=== PATIENT | male | born 1995 | race Caucasian/White ===

== ENCOUNTER 2022-02-13 10:41 | Inpatient (IN) | payer OTHER, SELFPAY ==
[2022-02-13] VITALS (7 sets, daily range): BP systolic 107–127; BP diastolic 56–72; PULSE 63–104; RESP 16–21; TEMP 36.4–37.8; O2SAT 91–99; BMI 37.3; BMI 33.2
[2022-02-13] MEDS: ONDANSETRON 4 MG/2 ML INJ IV (10:56)
[2022-02-13 11:31] LABS: Creatine Kinase 105 U/L (55-170)
[2022-02-13 11:33] LABS: Alanine Aminotransferase 133 IU/L (<50); Albumin 5.2 g/dL (3.5-5.0); Albumin Globulin Ratio 1.2 (1.0-2.8); Alkaline Phosphatase 81 U/L (38-126); Aspartate Aminotransferase 85 IU/L (17-59); BUN Creatinine Ratio 18.1 (6-22); Bilirubin Total 2.4 mg/dL (0.2-1.3); Blood Urea Nitrogen 15 mg/dL (9-20); Calcium 9.3 mg/dL (8.4-10.2); Carbon Dioxide 19 mmol/L (22-32); Chloride 96 mmol/L (98-107); Estimated Glomerular Filt Rate > 60 mL/min (>60); Globulin 4.4 g/dL (1.7-4.1); Glucose 331 mg/dL (70-100); Potassium 5.2 mmol/L (3.4-5.1); Sodium 134 mmol/L (137-145); Total Protein 9.6 g/dL (6.3-8.2)
[2022-02-13 11:46] LABS: CKMB % Relative Index 0.6 % (1.5-5.0); Creatine Kinase MB 0.58 ng/mL (<2.37)
[2022-02-13 11:51] LABS: HEMOLYSIS 25 (0-50); Lipase 9839 U/L (23-300)
[2022-02-13 12:17] LABS: Add Manual Diff / Slide Review NO; Basophils Absolute Auto 100 /uL (0-100); Basophils Percent Auto 0.4 % (0-2); Eosinophils Absolute Auto 100 /uL (0-450); Eosinophils Percent Auto 1.1 % (2-4); Hematocrit 46.1 % (41-53); Hemoglobin 15.9 g/dL (13.5-17.5); Lymphocytes Absolute Auto 3500 /uL (1100-4500); Lymphocytes Percent Auto 28.1 % (25-40); Mean Corpuscular HGB Conc 34.5 % (30-36); Mean Corpuscular Hemoglobin 27.5 PG (26-34); Mean Corpuscular Volume 79.8 fL (80-100); Monocytes Absolute Auto 800 /uL (0-900); Monocytes Percent Auto 6.5 % (3-14); Neutrophils Absolute Auto 7900 /uL (1500-7000); Neutrophils Percent Auto 63.9 % (50-75); Platelet Count 316 X10^3/uL (150-400); Red Blood Cell Count 5.77 X10^6/uL (4.5-5.9); Red Cell Distribution Width 13.1 % (11.6-14.8); White Blood Cell Count 12.4 X10^3/uL (4.5-11.0)
[2022-02-13 12:17] LABS: COVID19 -Nasal RAPID Negative (Negative)
--- NOTE | 2022-02-13 12:28 | DI.MRI.S_ITS ---
PROCEDURE: MR ABDOMEN WO/W CON INDICATIONS: gallstone pancreatitis TECHNIQUE: Coronal HASTE, axial 2D FLASH in- and [id number]; axial breath-hold T2 FSE. Dynamic axial VIBE during the administration of contrast; post-contrast coronal VIBE or 2D FLASH with fat saturation from the hepatic dome to the iliac crests. Optional diffusion weighted imaging and ADC may be performed. COMPARISON: None. FINDINGS: Image quality: Excellent. Lung bases: No effusion. Lungs are not well seen on MRI. Solid organs: Hepatic steatosis. No suspicious hypervascular lesion. There are areas of fatty sparing around the gallbladder. Gallbladder is mildly distended, without stone. No biliary ductal dilation. No pancreatic ductal dilation, however there is moderate degree of peripancreatic fat stranding. This primarily involves the body and tail. No convincing altered enhancement. No drainable fluid collection. Borderline splenomegaly. No adrenal nodules. Small renal cysts. Nodes and vessels: Prominent lymph nodes are not enlarged by size criteria, nonspecific. No abdominal aortic aneurysm. Bowel and peritoneum: Nonobstructed. No pathologic ascites, aside from left upper quadrant edema. Bones and soft tissues: Fat containing periumbilical hernia. No focal enhancing suspicious osseous lesion. IMPRESSION: Acute interstitial pancreatitis primarily involving the body and tail. No significant parenchymal necrosis at this time. No drainable fluid collection. No pancreatic ductal dilation. No biliary ductal dilation. No cholelithiasis. Hepatic steatosis. Other findings as above. Dictated by: Doni Cordova M.D. on 02/13/2022 at 15:57 Approved by: Doni Cordova M.D. on 02/13/2022 at 16:03
[2022-02-13] MEDS: HYDROMORPHONE 0.5 MG INJ IV ×3 (12:48→17:25)
[2022-02-13] MEDS: LACTATED RINGERS 1,000 ML 1000 ML IV (12:48)
[2022-02-13 13:04] LABS: Lactate (Lactic Acid) 2.8 mmol/L (0.7-2.1)
[2022-02-13 13:07] LABS: C-Reactive Protein Quant 2.2 mg/dL (<1.0)
--- NOTE | 2022-02-13 13:12 | ED.ABDPAIN ---
HPI - Abdominal Pain <HERNAN Miramontes - Last Filed: 02/13/22 17:21> General Chief Complaint: Abdominal Pain Stated Complaint: Abd/Chest pain x 2 days- getting worse Time Seen by Provider: 02/13/22 12:28 Source: patient Mode of arrival: Ambulatory History of Present Illness HPI narrative: This is a 26-year-old male who presents to the emergency department complaining of abdominal pain which has gotten worse over the last 2 days, states that he has been vomiting since yesterday and he is having recurrent bouts of abdominal pain with vomiting. He denies having pain like this ever before, he denies chest pain, shortness of breath, he denies any recent trauma, he denies fever and chills. Patient states that he drinks alcohol occasionally, uses marijuana but denies any other substances. He states that his stools have been loose, his pain has been quite severe in his right upper quadrant and his vomiting has been persistent. He denies any blood in his emesis or his stool. He states he has not been able to tolerate any p.o. fluids, he denies any history of medical conditions. He states his stool has been loose. Related Data Allergies Allergy/AdvReac Type Severity Reaction Status Date / Time No Known Drug Allergies Allergy Verified 02/13/22 10:46 Review of Systems <HERNAN Miramontes - Last Filed: 02/13/22 17:21> Review of Systems Narrative: Review of systems is negative for acute abnormalities unless otherwise noted in HPI Patient History <HERNAN Miramontes - Last Filed: 02/13/22 17:21> Medical History (Updated 02/13/22 @ 19:00 by Son Maynard DO) No pertinent past medical history Surgical History (Updated 02/13/22 @ 19:00 by Son Maynard DO) No pertinent past surgical history Family History (Updated 02/13/22 @ 19:00 by Son Maynard DO) Brother Diabetes mellitus Father Diabetes mellitus Social History household members: significant other Smoking Status: Never smoker alcohol intake: current Smoking Status: Never smoker Substance Use Type: marijuana Exam <HERNAN Miramontes - Last Filed: 02/13/22 17:21> Narrative Exam Narrative: Reviewed vitals signs and nursing notes. General: cooperative, uncomfortable, in acute distress, vomiting, appears fatigued and well groomed HEENT: symmetrical facial expressions, moist mucous membranes, PERRLA, EOMI Cardiovascular: Sinus tachycardia, S1-S2 without murmur, no peripheral edema, warm extremities Respiratory: normal effort, able to speak in complete sentences, without wheezing, stridor, or abnormal breath sounds. No retractions or tachypnea. GI: abdomen soft, tender to palpation to the right upper quadrant and epigastrium, mildly distended, without masses, rebound tenderness or exquisite tenderness with exam. MSK: moves all extremities, neurovascularly intact, no weakness, normal tone Skin: brisk capillary refill, mild pallor or erythema Neuro: normal speech and cognition, A&O x3, ambulatory, clear speech Psych: mental status is grossly normal, congruent mood, normal affect, pleasant and cooperative Initial Vital Signs Initial Vital Signs: Vital Signs Temperature 97.5 F L 02/13/22 10:46 Pulse Rate 63 02/13/22 10:46 Respiratory Rate 18 02/13/22 10:46 Blood Pressure 127/61 02/13/22 10:46 Pulse Oximetry 98 02/13/22 10:46 Oxygen Delivery Method 02/13/22 10:46 <Krista Ng MD - Last Filed: 02/14/22 05:10> Initial Vital Signs Initial Vital Signs: Vital Signs Temperature 97.5 F L 02/13/22 10:46 Pulse Rate 63 02/13/22 10:46 Respiratory Rate 18 02/13/22 10:46 Blood Pressure 127/61 02/13/22 10:46 Pulse Oximetry 98 02/13/22 10:46 Oxygen Delivery Method 02/13/22 10:46 Course <HERNAN Miramontes - Last Filed: 02/13/22 17:21> Orders Ordered: Acetaminophen (Acetaminophen 325 Mg Tablet) 650 mg PO Q6H PRN PRN Reason: Fever/Mild Pain (1-3) Last Admin: 02/14/22 00:03 Dose: 650 mg Documented By: FAHEEM Atorvastatin Calcium (Atorvastatin 20 Mg Tablet) 80 mg PO BEDTIME HELLEN Last Admin: 02/13/22 20:20 Dose: 80 mg Documented By: FAHEEM Fenofibrate (Fenofibrate, Micronized 67 Mg Capsule) 201 mg PO DAILY@0800 [facility] Hydromorphone HCl (Hydromorphone 1 Mg Inj) 1 mg IV Q3H PRN PRN Reason: Pain, Moderate (4-6) Last Admin: 02/14/22 03:32 Dose: 1 mg Documented By: Admin: 02/13/22 20:58 Dose: 1 mg Documented By: FAHEEM Hydromorphone HCl (Hydromorphone 2 Mg Inj) 2 mg IV Q3H PRN PRN Reason: Pain, Severe (7-10) Last Admin: 02/13/22 23:42 Dose: 2 mg Documented By: FAHEEM Sodium Chloride (Normal Saline 0.9%) 1,000 mls @ 100 mls/hr IV CONT HELLEN Last Admin: 02/14/22 04:22 Dose: 100 mls/hr Documented By: Infusion: 02/14/22 04:22 Dose: 100 mls/hr Documented By: Admin: 02/13/22 19:16 Dose: 100 mls/hr Documented By: EUGENIA INSULIN DRIP PREMIX (Myxredlin Drip Premix) 100 unit in 100 mls @ 11.793 mls/hr IV TITRATE HELLEN; Protocol Last Titration: 02/13/22 20:36 Dose: 0.04 unit/kg/hr, 5 mls/hr Documented By: FAHEEM Co-signed By: WALTER Admin: 02/13/22 19:15 Dose: 0.1 unit/kg/hr, 11.793 mls/hr Documented By: EUGENIA Co-signed By: FAHEEM Ondansetron HCl (Ondansetron 4 Mg/2 Ml Inj) 4 mg IV Q4HR PRN PRN Reason: Nausea And Vomiting Last Admin: 02/14/22 03:32 Dose: 4 mg Documented By: FAHEEM Discontinued Medications Hydromorphone HCl (Hydromorphone 0.5 Mg Inj) 0.5 mg IV NOW ONE Stop: 02/13/22 12:33 Last Admin: 02/13/22 12:48 Dose: 0.5 mg Documented By: ASHIA Hydromorphone HCl (Hydromorphone 0.5 Mg Inj) 0.5 mg IV NOW ONE Stop: 02/13/22 14:06 Last Admin: 02/13/22 15:33 Dose: 0.5 mg Documented By: GONZALEZ Hydromorphone HCl (Hydromorphone 0.5 Mg Inj) 0.5 mg IV NOW ONE Stop: 02/13/22 17:21 Last Admin: 02/13/22 17:25 Dose: 0.5 mg Documented By: CHARLIE Lactated Ringer's (Lactated Ringers) 1,000 mls @ 1,000 mls/hr IV BOLUS ONE Stop: 02/13/22 13:27 Last Infusion: 02/13/22 16:19 Dose: 0 mls/hr Documented By: [facility] Admin: 02/13/22 12:48 Dose: 1,000 mls/hr Documented By: ASHIA Piperacillin Sod/Tazobactam (Sod 4.5 gm/ Sodium Chloride) 100 mls @ 200 mls/hr IV NOW ONE Stop: 02/13/22 14:20 Last Infusion: 02/13/22 16:19 Dose: 0 mls/hr Documented By: [facility] Admin: 02/13/22 15:29 Dose: 200 mls/hr Documented By: CHARLIE Sodium Chloride (Normal Saline 0.9%) 500 mls @ 1,000 mls/hr IV BOLUS ONE Stop: 02/13/22 14:49 Last Infusion: 02/13/22 16:20 Dose: 0 mls/hr Documented By: [facility] Admin: 02/13/22 15:30 Dose: 1,000 mls/hr Documented By: CHARLIE Ketorolac Tromethamine (Ketorolac 30 Mg/Ml Vial) 15 mg IV NOW ONE Stop: 02/13/22 12:54 Last Admin: 02/13/22 13:22 Dose: 15 mg Documented By: JUN Metoclopramide HCl (Metoclopramide 10 Mg/2 Ml Inj) 10 mg IV NOW ONE Stop: 02/13/22 16:17 Last Admin: 02/13/22 17:24 Dose: 10 mg Documented By: [facility] Ondansetron HCl (Ondansetron 4 Mg/2 Ml Inj) 4 mg IV NOW ONE Stop: 02/13/22 10:52 Last Admin: 02/13/22 10:56 Dose: 4 mg Documented By: [facility] Pantoprazole Sodium (Pantoprazole 40 Mg Vial) 20 mg IV NOW ONE Stop: 02/13/22 12:54 Last Admin: 02/13/22 13:22 Dose: 20 mg Documented By: JUN Reevaluation(s) Reevaluation #1: Patient states that he feels much better after the antiemetics and fluids has started Reevaluation #2: Patient receiving a 2 L of fluid, complains of pain, was given a 2nd dose of hydromorphone and another dose of Zofran Consultations Consultation #1: Consultation with Dr. Maynard for admission, he accepts patient for admission for pancreatitis Vital Signs Vital signs: Vital Signs - 8 hr 02/13/22 10:46 02/13/22 15:37 Temperature 97.5 F L Pulse Rate 63 104 H Respiratory Rate 18 20 Blood Pressure 127/61 124/67 Pulse Oximetry 98 98 Oxygen Delivery Method Room Air Room Air <Krista Ng MD - Last Filed: 02/14/22 05:10> Orders Ordered: Acetaminophen (Acetaminophen 325 Mg Tablet) 650 mg PO Q6H PRN PRN Reason: Fever/Mild Pain (1-3) Last Admin: 02/14/22 00:03 Dose: 650 mg Documented By: FAHEEM Atorvastatin Calcium (Atorvastatin 20 Mg Tablet) 80 mg PO BEDTIME [facility] Last Admin: 02/13/22 20:20 Dose: 80 mg Documented By: FAHEEM Fenofibrate (Fenofibrate, Micronized 67 Mg Capsule) 201 mg PO DAILY@0800 [facility] Hydromorphone HCl (Hydromorphone 1 Mg Inj) 1 mg IV Q3H PRN PRN Reason: Pain, Moderate (4-6) Last Admin: 02/14/22 03:32 Dose: 1 mg Documented By: Admin: 02/13/22 20:58 Dose: 1 mg Documented By: FAHEEM Hydromorphone HCl (Hydromorphone 2 Mg Inj) 2 mg IV Q3H PRN PRN Reason: Pain, Severe (7-10) Last Admin: 02/13/22 23:42 Dose: 2 mg Documented By: FAHEEM Sodium Chloride (Normal Saline 0.9%) 1,000 mls @ 100 mls/hr IV CONT HELLEN Last Admin: 02/14/22 04:22 Dose: 100 mls/hr Documented By: Infusion: 02/14/22 04:22 Dose: 100 mls/hr Documented By: Admin: 02/13/22 19:16 Dose: 100 mls/hr Documented By: EUGENIA INSULIN DRIP PREMIX (Myxredlin Drip Premix) 100 unit in 100 mls @ 11.793 mls/hr IV TITRATE HELLEN; Protocol Last Titration: 02/13/22 20:36 Dose: 0.04 unit/kg/hr, 5 mls/hr Documented By: FAHEEM Co-signed By: [facility] Admin: 02/13/22 19:15 Dose: 0.1 unit/kg/hr, 11.793 mls/hr Documented By: EUGENIA Co-signed By: FAHEEM Ondansetron HCl (Ondansetron 4 Mg/2 Ml Inj) 4 mg IV Q4HR PRN PRN Reason: Nausea And Vomiting Last Admin: 02/14/22 03:32 Dose: 4 mg Documented By: FAHEEM Discontinued Medications Hydromorphone HCl (Hydromorphone 0.5 Mg Inj) 0.5 mg IV NOW ONE Stop: 02/13/22 12:33 Last Admin: 02/13/22 12:48 Dose: 0.5 mg Documented By: ASHIA Hydromorphone HCl (Hydromorphone 0.5 Mg Inj) 0.5 mg IV NOW ONE Stop: 02/13/22 14:06 Last Admin: 02/13/22 15:33 Dose: 0.5 mg Documented By: CHARLIE Hydromorphone HCl (Hydromorphone 0.5 Mg Inj) 0.5 mg IV NOW ONE Stop: 02/13/22 17:21 Last Admin: 02/13/22 17:25 Dose: 0.5 mg Documented By: CHARLIE Lactated Ringer's (Lactated Ringers) 1,000 mls @ 1,000 mls/hr IV BOLUS ONE Stop: 02/13/22 13:27 Last Infusion: 02/13/22 16:19 Dose: 0 mls/hr Documented By: Admin: 02/13/22 12:48 Dose: 1,000 mls/hr Documented By: ASHIA Piperacillin Sod/Tazobactam (Sod 4.5 gm/ Sodium Chloride) 100 mls @ 200 mls/hr IV NOW ONE Stop: 02/13/22 14:20 Last Infusion: 02/13/22 16:19 Dose: 0 mls/hr Documented By: Admin: 02/13/22 15:29 Dose: 200 mls/hr Documented By: CHARLIE Sodium Chloride (Normal Saline 0.9%) 500 mls @ 1,000 mls/hr IV BOLUS ONE Stop: 02/13/22 14:49 Last Infusion: 02/13/22 16:20 Dose: 0 mls/hr Documented By: Admin: 02/13/22 15:30 Dose: 1,000 mls/hr Documented By: [facility] Ketorolac Tromethamine (Ketorolac 30 Mg/Ml Vial) 15 mg IV NOW ONE Stop: 02/13/22 12:54 Last Admin: 02/13/22 13:22 Dose: 15 mg Documented By: AMQue Metoclopramide HCl (Metoclopramide 10 Mg/2 Ml Inj) 10 mg IV NOW ONE Stop: 02/13/22 16:17 Last Admin: 02/13/22 17:24 Dose: 10 mg Documented By: GONZALEZ Ondansetron HCl (Ondansetron 4 Mg/2 Ml Inj) 4 mg IV NOW ONE Stop: 02/13/22 10:52 Last Admin: 02/13/22 10:56 Dose: 4 mg Documented By: MARKOS Pantoprazole Sodium (Pantoprazole 40 Mg Vial) 20 mg IV NOW ONE Stop: 02/13/22 12:54 Last Admin: 02/13/22 13:22 Dose: 20 mg Documented By: JUN Vital Signs Vital signs: Vital Signs - 8 hr 02/13/22 10:46 02/13/22 15:37 Temperature 97.5 F L Pulse Rate 63 104 H Respiratory Rate 18 20 Blood Pressure 127/61 124/67 Pulse Oximetry 98 98 Oxygen Delivery Method Room Air Room Air MDM - Abdominal Pain <HERNAN Miramontes - Last Filed: 02/13/22 17:21> Lab Data Result diagrams: 02/13/22 11:00 02/13/22 16:14 Labs: Lab Results 02/13/22 02/13/22 02/13/22 Range/Units 10:58 11:00 11:00 WBC 12.4 H (4.5-11.0) X10^3/uL RBC 5.77 (4.5-5.9) X10^6/uL Hgb 15.9 (13.5-17.5) g/dL Hct 46.1 (41-53) % MCV 79.8 L (80-100) fL MCH 27.5 (26-34) PG MCHC 34.5 (30-36) % RDW 13.1 (11.6-14.8) % Plt Count 316 (150-400) X10^3/uL Neut % (Auto) 63.9 (50-75) % Lymph % (Auto) 28.1 (25-40) % [place] % (Auto) 6.5 (3-14) % Eos % (Auto) 1.1 L (2-4) % Baso % (Auto) 0.4 (0-2) % Neut # (Auto) 7900 H (2720-1260) /uL Lymph # (Auto) 3500 (0355-3006) /uL [place] # (Auto) 800 (0-900) /uL Eos # (Auto) 100 (0-450) /uL Baso # (Auto) 100 (0-100) /uL Sodium 134 L (137-145) mmol/L Potassium 5.2 H (3.4-5.1) mmol/L Chloride 96 L (98-107) mmol/L Carbon Dioxide 19 L (22-32) mmol/L BUN 15 (9-20) mg/dL Creatinine 0.83 (0.66-1.25) mg/dL Estimated GFR > 60 (>60) mL/min BUN/Creatinine Ratio 18.1 (6-22) Glucose 331 H (70-100) mg/dL Lactate (0.7-2.1) mmol/L Calcium 9.3 (8.4-10.2) mg/dL Total Bilirubin 2.4 H (0.2-1.3) mg/dL AST 85 H (17-59) IU/L ALT 133 H (<50) IU/L Alkaline Phosphatase 81 (38-126) U/L Total Creatine Kinase (55-170) U/L CK-MB (CK-2) (<2.37) ng/mL CK-MB (CK-2) Rel Index (1.5-5.0) % Troponin I (0.01-0.034) ng/mL C-Reactive Protein (<1.0) mg/dL Total Protein 9.6 H (6.3-8.2) g/dL Albumin 5.2 H (3.5-5.0) g/dL Globulin 4.4 H (1.7-4.1) g/dL Albumin/Globulin Ratio 1.2 (1.0-2.8) Triglycerides (35-150) mg/dL Lipase 9839 H (23-300) U/L Procalcitonin (<0.5) ng/mL SARS-CoV-2 (PCR) Negative (Negative) 02/13/22 02/13/22 02/13/22 Range/Units 11:00 11:00 11:00 WBC (4.5-11.0) X10^3/uL RBC (4.5-5.9) X10^6/uL Hgb (13.5-17.5) g/dL Hct (41-53) % MCV (80-100) fL MCH (26-34) PG MCHC (30-36) % RDW (11.6-14.8) % Plt Count (150-400) X10^3/uL Neut % (Auto) (50-75) % Lymph % (Auto) (25-40) % [place] % (Auto) (3-14) % Eos % (Auto) (2-4) % Baso % (Auto) (0-2) % Neut # (Auto) (7128-4469) /uL Lymph # (Auto) (6305-3690) /uL [place] # (Auto) (0-900) /uL Eos # (Auto) (0-450) /uL Baso # (Auto) (0-100) /uL Sodium (137-145) mmol/L Potassium (3.4-5.1) mmol/L Chloride (98-107) mmol/L Carbon Dioxide (22-32) mmol/L BUN (9-20) mg/dL Creatinine (0.66-1.25) mg/dL Estimated GFR (>60) mL/min BUN/Creatinine Ratio (6-22) Glucose (70-100) mg/dL Lactate 2.8 H (0.7-2.1) mmol/L Calcium (8.4-10.2) mg/dL Total Bilirubin (0.2-1.3) mg/dL AST (17-59) IU/L ALT (<50) IU/L Alkaline Phosphatase (38-126) U/L Total Creatine Kinase 105 (55-170) U/L CK-MB (CK-2) 0.58 (<2.37) ng/mL CK-MB (CK-2) Rel Index 0.6 L (1.5-5.0) % Troponin I 0.020 (0.01-0.034) ng/mL C-Reactive Protein (<1.0) mg/dL Total Protein (6.3-8.2) g/dL Albumin (3.5-5.0) g/dL Globulin (1.7-4.1) g/dL Albumin/Globulin Ratio (1.0-2.8) Triglycerides (35-150) mg/dL Lipase (23-300) U/L Procalcitonin 0.16 (<0.5) ng/mL SARS-CoV-2 (PCR) (Negative) 02/13/22 02/13/22 02/13/22 Range/Units 11:00 16:14 16:14 WBC (4.5-11.0) X10^3/uL RBC (4.5-5.9) X10^6/uL Hgb (13.5-17.5) g/dL Hct (41-53) % MCV (80-100) fL MCH (26-34) PG MCHC (30-36) % RDW (11.6-14.8) % Plt Count (150-400) X10^3/uL Neut % (Auto) (50-75) % Lymph % (Auto) (25-40) % [place] % (Auto) (3-14) % Eos % (Auto) (2-4) % Baso % (Auto) (0-2) % Neut # (Auto) (1721-4082) /uL Lymph # (Auto) (1265-2129) /uL [place] # (Auto) (0-900) /uL Eos # (Auto) (0-450) /uL Baso # (Auto) (0-100) /uL Sodium 133 L (137-145) mmol/L Potassium 4.8 (3.4-5.1) mmol/L Chloride 96 L (98-107) mmol/L Carbon Dioxide 24 (22-32) mmol/L BUN 14 (9-20) mg/dL Creatinine 0.68 (0.66-1.25) mg/dL Estimated GFR > 60 (>60) mL/min BUN/Creatinine Ratio 20.6 (6-22) Glucose 331 H (70-100) mg/dL Lactate 1.9 (0.7-2.1) mmol/L Calcium 8.1 L (8.4-10.2) mg/dL Total Bilirubin (0.2-1.3) mg/dL AST (17-59) IU/L ALT (<50) IU/L Alkaline Phosphatase (38-126) U/L Total Creatine Kinase (55-170) U/L CK-MB (CK-2) (<2.37) ng/mL CK-MB (CK-2) Rel Index (1.5-5.0) % Troponin I (0.01-0.034) ng/mL C-Reactive Protein 2.2 H (<1.0) mg/dL Total Protein (6.3-8.2) g/dL Albumin (3.5-5.0) g/dL Globulin (1.7-4.1) g/dL Albumin/Globulin Ratio (1.0-2.8) Triglycerides 3186 H (35-150) mg/dL Lipase (23-300) U/L Procalcitonin (<0.5) ng/mL SARS-CoV-2 (PCR) (Negative) Imaging Data abdominal MRCP: Radiologist's Impression: PROCEDURE:? MR ABDOMEN WO/W CON ? INDICATIONS:? gallstone pancreatitis ? TECHNIQUE:? Coronal HASTE, axial 2D FLASH in- and [id number]; axial breath-hold T2 FSE.? Dynamic axial VIBE during the administration of contrast; post-contrast coronal VIBE or 2D FLASH with fat saturation from the hepatic dome to the iliac crests.? Optional diffusion weighted imaging and ADC may be performed.? ? COMPARISON:? None. ? FINDINGS:? Image quality:? Excellent.? ? Lung bases:? No effusion.? Lungs are not well seen on MRI. ? Solid organs:? Hepatic steatosis.? No suspicious hypervascular lesion.? There are areas of fatty sparing around the gallbladder. Gallbladder is mildly distended, without stone.? No biliary ductal dilation.? No pancreatic ductal dilation, however there is moderate degree of peripancreatic fat stranding.? This primarily involves the body and tail.? No convincing altered enhancement.? No drainable fluid collection.? Borderline splenomegaly. No adrenal nodules.? Small renal cysts. ? Nodes and vessels:? Prominent lymph nodes are not enlarged by size criteria, nonspecific. ?No abdominal aortic aneurysm. ? Bowel and peritoneum:? Nonobstructed.? No pathologic ascites, aside from left upper quadrant edema. ? Bones and soft tissues:? Fat containing periumbilical hernia.? No focal enhancing suspicious osseous lesion. ? ? ? IMPRESSION:? Acute interstitial pancreatitis primarily involving the body and tail.? No significant parenchymal necrosis at this time.? No drainable fluid collection.? No pancreatic ductal dilation.? No biliary ductal dilation.? No cholelithiasis. ? Hepatic steatosis. ? Other findings as above. ? Dictated by: Doni Cordova M.D. on 02/13/2022 at 15:57 ? ? Approved by: Doni Cordova M.D. on 02/13/2022 at 16:03 ? [facility] Narrative Medical decision making narrative: This is a 26-year-old male who presents to the emergency department for 2 days of nausea and vomiting without a break, loose stool, right upper quadrant pain with a low-grade fever. He states that he drinks alcohol only rarely, found to have acute interstitial pancreatitis primarily involving the body and tail via MRCP, no significant parenchymal necrosis at this time or drainable fluid collection, no pancreatic ductal dilatation and no biliary ductal dilatation, without cholelithiasis, hepatic steatosis was found. He was given 2 L of IV fluids, had a mild leukocytosis of 12.4 without anemia, sodium 134, potassium was 5 2 prior to recheck, recheck potassium is 4.8, recheck of glucose was again 331. Glucose was elevated at 331 and lactic acidosis at 2.8, this was rechecked after fluid administration and was 1.9. His total bilirubin was 2.4 initially, AST of 85, ALT of 133, no elevation to alkaline phosphatase, troponin of 0. 0 2, CRP is elevated at 2.2, total protein elevated at 9.6, albumin 5.2, triglycerides were significantly elevated at 31 86, lipase is 9839, procalcitonin of 0.16 and COVID PCR is negative. Patient was given Zosyn 4.5 mg, accepted by Dr. Maynard for admission to observation status for pancreatitis and intractable nausea vomiting. His pain was controlled with hydromorphone, Toradol and antiemetics emergency department. He is had 2 doses of 4mg Zofran and 10 mg of Reglan. <Krista Ng MD - Last Filed: 02/14/22 05:10> Lab Data Labs: Lab Results 02/13/22 02/13/22 02/13/22 Range/Units 10:58 11:00 11:00 WBC 12.4 H (4.5-11.0) X10^3/uL RBC 5.77 (4.5-5.9) X10^6/uL Hgb 15.9 (13.5-17.5) g/dL Hct 46.1 (41-53) % MCV 79.8 L (80-100) fL MCH 27.5 (26-34) PG MCHC 34.5 (30-36) % RDW 13.1 (11.6-14.8) % Plt Count 316 (150-400) X10^3/uL Neut % (Auto) 63.9 (50-75) % Lymph % (Auto) 28.1 (25-40) % [place] % (Auto) 6.5 (3-14) % Eos % (Auto) 1.1 L (2-4) % Baso % (Auto) 0.4 (0-2) % Neut # (Auto) 7900 H (4840-0184) /uL Lymph # (Auto) 3500 (3976-8813) /uL [place] # (Auto) 800 (0-900) /uL Eos # (Auto) 100 (0-450) /uL Baso # (Auto) 100 (0-100) /uL Sodium 134 L (137-145) mmol/L Potassium 5.2 H (3.4-5.1) mmol/L Chloride 96 L (98-107) mmol/L Carbon Dioxide 19 L (22-32) mmol/L BUN 15 (9-20) mg/dL Creatinine 0.83 (0.66-1.25) mg/dL Estimated GFR > 60 (>60) mL/min BUN/Creatinine Ratio 18.1 (6-22) Glucose 331 H (70-100) mg/dL Lactate (0.7-2.1) mmol/L Calcium 9.3 (8.4-10.2) mg/dL Total Bilirubin 2.4 H (0.2-1.3) mg/dL AST 85 H (17-59) IU/L ALT 133 H (<50) IU/L Alkaline Phosphatase 81 (38-126) U/L Total Creatine Kinase (55-170) U/L CK-MB (CK-2) (<2.37) ng/mL CK-MB (CK-2) Rel Index (1.5-5.0) % Troponin I (0.01-0.034) ng/mL C-Reactive Protein (<1.0) mg/dL Total Protein 9.6 H (6.3-8.2) g/dL Albumin 5.2 H (3.5-5.0) g/dL Globulin 4.4 H (1.7-4.1) g/dL Albumin/Globulin Ratio 1.2 (1.0-2.8) Triglycerides (35-150) mg/dL Lipase 9839 H (23-300) U/L Procalcitonin (<0.5) ng/mL SARS-CoV-2 (PCR) Negative (Negative) 02/13/22 02/13/22 02/13/22 Range/Units 11:00 11:00 11:00 WBC (4.5-11.0) X10^3/uL RBC (4.5-5.9) X10^6/uL Hgb (13.5-17.5) g/dL Hct (41-53) % MCV (80-100) fL MCH (26-34) PG MCHC (30-36) % RDW (11.6-14.8) % Plt Count (150-400) X10^3/uL Neut % (Auto) (50-75) % Lymph % (Auto) (25-40) % [place] % (Auto) (3-14) % Eos % (Auto) (2-4) % Baso % (Auto) (0-2) % Neut # (Auto) (1406-8522) /uL Lymph # (Auto) (5891-2927) /uL [place] # (Auto) (0-900) /uL Eos # (Auto) (0-450) /uL Baso # (Auto) (0-100) /uL Sodium (137-145) mmol/L Potassium (3.4-5.1) mmol/L Chloride (98-107) mmol/L Carbon Dioxide (22-32) mmol/L BUN (9-20) mg/dL Creatinine (0.66-1.25) mg/dL Estimated GFR (>60) mL/min BUN/Creatinine Ratio (6-22) Glucose (70-100) mg/dL Lactate 2.8 H (0.7-2.1) mmol/L Calcium (8.4-10.2) mg/dL Total Bilirubin (0.2-1.3) mg/dL AST (17-59) IU/L ALT (<50) IU/L Alkaline Phosphatase (38-126) U/L Total Creatine Kinase 105 (55-170) U/L CK-MB (CK-2) 0.58 (<2.37) ng/mL CK-MB (CK-2) Rel Index 0.6 L (1.5-5.0) % Troponin I 0.020 (0.01-0.034) ng/mL C-Reactive Protein (<1.0) mg/dL Total Protein (6.3-8.2) g/dL Albumin (3.5-5.0) g/dL Globulin (1.7-4.1) g/dL Albumin/Globulin Ratio (1.0-2.8) Triglycerides (35-150) mg/dL Lipase (23-300) U/L Procalcitonin 0.16 (<0.5) ng/mL SARS-CoV-2 (PCR) (Negative) 02/13/22 02/13/22 02/13/22 Range/Units 11:00 16:14 16:14 WBC (4.5-11.0) X10^3/uL RBC (4.5-5.9) X10^6/uL Hgb (13.5-17.5) g/dL Hct (41-53) % MCV (80-100) fL MCH (26-34) PG MCHC (30-36) % RDW (11.6-14.8) % Plt Count (150-400) X10^3/uL Neut % (Auto) (50-75) % Lymph % (Auto) (25-40) % [place] % (Auto) (3-14) % Eos % (Auto) (2-4) % Baso % (Auto) (0-2) % Neut # (Auto) (0551-6121) /uL Lymph # (Auto) (9369-0430) /uL [place] # (Auto) (0-900) /uL Eos # (Auto) (0-450) /uL Baso # (Auto) (0-100) /uL Sodium 133 L (137-145) mmol/L Potassium 4.8 (3.4-5.1) mmol/L Chloride 96 L (98-107) mmol/L Carbon Dioxide 24 (22-32) mmol/L BUN 14 (9-20) mg/dL Creatinine 0.68 (0.66-1.25) mg/dL Estimated GFR > 60 (>60) mL/min BUN/Creatinine Ratio 20.6 (6-22) Glucose 331 H (70-100) mg/dL Lactate 1.9 (0.7-2.1) mmol/L Calcium 8.1 L (8.4-10.2) mg/dL Total Bilirubin (0.2-1.3) mg/dL AST (17-59) IU/L ALT (<50) IU/L Alkaline Phosphatase (38-126) U/L Total Creatine Kinase (55-170) U/L CK-MB (CK-2) (<2.37) ng/mL CK-MB (CK-2) Rel Index (1.5-5.0) % Troponin I (0.01-0.034) ng/mL C-Reactive Protein 2.2 H (<1.0) mg/dL Total Protein (6.3-8.2) g/dL Albumin (3.5-5.0) g/dL Globulin (1.7-4.1) g/dL Albumin/Globulin Ratio (1.0-2.8) Triglycerides 3186 H (35-150) mg/dL Lipase (23-300) U/L Procalcitonin (<0.5) ng/mL SARS-CoV-2 (PCR) (Negative) Discharge Plan Departure Patient Disposition: Admitted As Inpatient Clinical Impression: High triglycerides, Elevated bilirubin, Acute dehydration, Elevated glucose Acute pancreatitis Qualifiers: Pancreatitis type: unspecified pancreatitis type Acute pancreatitis complication: no infection or necrosis Qualified Code(s): K85.90 - Acute pancreatitis without necrosis or infection, unspecified Admit Date/Time: 02/13/22 18:09 Admit Provider: Son Maynard <Krista Ng MD - Last Filed: 02/14/22 05:10> Cosign ED Attending Cosignature Attestation: I was immediately available in the department for consultation throughout this patient's visit. I agree with documentation as above. Krista Ng MD
[2022-02-13 13:21] LABS: Procalcitonin 0.16 ng/mL (<0.5)
[2022-02-13] MEDS: PANTOPRAZOLE 40 MG VIAL 20 MG IV (13:22)
[2022-02-13] MEDS: KETOROLAC 30 MG/ML VIAL 15 MG IV (13:22)
[2022-02-13 13:26] LABS: Triglycerides 3186 mg/dL (35-150)
[2022-02-13 14:51] LABS: Reflexed Lactate in 2 Hours Y
[2022-02-13] MEDS: PIPERACILLIN/TAZO 4.5 GM in SODIUM CHLORIDE 0.9% 100 ML IV (15:29)
[2022-02-13] MEDS: SODIUM CHLORIDE 0.9% 500 ML 1000 ML IV (15:30)
[2022-02-13] MEDS: ONDANSETRON 4 MG/2 ML INJ (15:37)
[2022-02-13 17:02] LABS: Lactate 2HR (Lactic Acid Rflx) 1.9 mmol/L (0.7-2.1)
[2022-02-13 17:05] LABS: BUN Creatinine Ratio 20.6 (6-22); Blood Urea Nitrogen 14 mg/dL (9-20); Calcium 8.1 mg/dL (8.4-10.2); Carbon Dioxide 24 mmol/L (22-32); Chloride 96 mmol/L (98-107); Estimated Glomerular Filt Rate > 60 mL/min (>60); Potassium 4.8 mmol/L (3.4-5.1); Sodium 133 mmol/L (137-145)
[2022-02-13 17:15] LABS: HEMOLYSIS 216 (0-50)
[2022-02-13 17:16] LABS: Glucose 331 mg/dL (70-100)
[2022-02-13] MEDS: METOCLOPRAMIDE 10 MG/2 ML INJ IV (17:24)
--- NOTE | 2022-02-13 18:36 | PM.CN.EICU ---
History of Present Illness Consult details IF CAMERA ACTIVATED, patient seen via real-time interactive audiovisual communication: Camera activated Date Patient Seen: 02/13/22 Chief complaint: Abd/Chest pain x 2 days- getting worse Reason for consult: Hypertriglyceridemia causing pancreatitis Consent obtained for tele-assistant auto center manager care: Yes Patient Location: ICU Provider location (State): [place] Other participants/roles: Dr. Maynard and RN Narrative: Patient with no significant past medical history who presents with abdominal pain for the past three days. Associated with N/V. Denies fever/chills, SOB, chest pain, or cough. No reported alcohol intake. On presentation he was found to have acute pancreatitis with lipase 9836 and TG 3186. Admitted to ICU for further management. MRI Abdomen: Acute interstitial pancreatitis primarily involving the body and tail.? No significant parenchymal necrosis at this time.? No drainable fluid collection.? No pancreatic ductal dilation.? No biliary ductal dilation.? No cholelithiasis. [facility] Medical History (Updated 02/13/22 @ 19:00 by Son Maynard DO) No pertinent past medical history Surgical History (Updated 02/13/22 @ 19:00 by Son Maynard DO) No pertinent past surgical history Family History (Updated 02/13/22 @ 19:00 by Son Maynard DO) Brother Diabetes mellitus Father Diabetes mellitus Social History Smoking Status: Never smoker Exam Vital Signs (past 8 hours): - 02/13/22 10:46 02/13/22 15:37 Temperature 97.5 F L Pulse Rate 63 104 H Respiratory Rate 18 20 Blood Pressure 127/61 124/67 Pulse Oximetry 98 98 Oxygen Delivery Method Room Air Room Air Oxygen Delivery Method Room Air Narrative Exam Narrative: NAD; speaking in full sentence. Objective Labs Result Diagrams: 02/13/22 11:00 02/13/22 16:14 Labs: Laboratory Results - last 24 hr 02/13/22 02/13/22 02/13/22 10:58 11:00 11:00 WBC 12.4 H RBC 5.77 Hgb 15.9 Hct 46.1 MCV 79.8 L MCH 27.5 MCHC 34.5 RDW 13.1 Plt Count 316 Neut % (Auto) 63.9 Lymph % (Auto) 28.1 [place] % (Auto) 6.5 Eos % (Auto) 1.1 L Baso % (Auto) 0.4 Neut # (Auto) 7900 H Lymph # (Auto) 3500 [place] # (Auto) 800 Eos # (Auto) 100 Baso # (Auto) 100 Sodium 134 L Potassium 5.2 H Chloride 96 L Carbon Dioxide 19 L BUN 15 Creatinine 0.83 Estimated GFR > 60 BUN/Creatinine Ratio 18.1 Glucose 331 H Lactate Calcium 9.3 Total Bilirubin 2.4 H AST 85 H ALT 133 H Alkaline Phosphatase 81 Total Creatine Kinase CK-MB (CK-2) CK-MB (CK-2) Rel Index Troponin I C-Reactive Protein Total Protein 9.6 H Albumin 5.2 H Globulin 4.4 H Albumin/Globulin Ratio 1.2 Triglycerides Lipase 9839 H Procalcitonin SARS-CoV-2 (PCR) Negative 02/13/22 02/13/22 02/13/22 11:00 11:00 11:00 WBC RBC Hgb Hct MCV MCH MCHC RDW Plt Count Neut % (Auto) Lymph % (Auto) [place] % (Auto) Eos % (Auto) Baso % (Auto) Neut # (Auto) Lymph # (Auto) [place] # (Auto) Eos # (Auto) Baso # (Auto) Sodium Potassium Chloride Carbon Dioxide BUN Creatinine Estimated GFR BUN/Creatinine Ratio Glucose Lactate 2.8 H Calcium Total Bilirubin AST ALT Alkaline Phosphatase Total Creatine Kinase 105 CK-MB (CK-2) 0.58 CK-MB (CK-2) Rel Index 0.6 L Troponin I 0.020 C-Reactive Protein Total Protein Albumin Globulin Albumin/Globulin Ratio Triglycerides Lipase Procalcitonin 0.16 SARS-CoV-2 (PCR) 02/13/22 02/13/22 02/13/22 11:00 16:14 16:14 WBC RBC Hgb Hct MCV MCH MCHC RDW Plt Count Neut % (Auto) Lymph % (Auto) [place] % (Auto) Eos % (Auto) Baso % (Auto) Neut # (Auto) Lymph # (Auto) [place] # (Auto) Eos # (Auto) Baso # (Auto) Sodium 133 L Potassium 4.8 Chloride 96 L Carbon Dioxide 24 BUN 14 Creatinine 0.68 Estimated GFR > 60 BUN/Creatinine Ratio 20.6 Glucose 331 H Lactate 1.9 Calcium 8.1 L Total Bilirubin AST ALT Alkaline Phosphatase Total Creatine Kinase CK-MB (CK-2) CK-MB (CK-2) Rel Index Troponin I C-Reactive Protein 2.2 H Total Protein Albumin Globulin Albumin/Globulin Ratio Triglycerides 3186 H Lipase Procalcitonin SARS-CoV-2 (PCR) Assessment & Plan Assessment & Plan narrative: # Acute pancreatitis -- Secondary to hypertriglyceridemia -- Start IVF -- NPO w/ ice chips -- Pain control w/ morphine 1 mg q3hr prn severe pain -- Triglyceridemia management as below # Hypertriglyceridemia -- Start insulin infusion to increase LPL activity -- Accucheck q1hr -- Goal BS 150-250 -- Daily TG level -- Start lipitor and fenofibrate # Hyperglycemia -- Start IVF -- Start insulin infusion -- Goal BS 150-250 -- Check HbA1c Discussed with RN and Dr. Maynard, Time Spent With Patient Critical Care time: I spent a total of [] minutes of critical care time on this patient's care today; this time is exclusive of procedural time.
--- NOTE | 2022-02-13 18:58 | P.HP_ITS ---
History of Present Illness History of Present Illness Date Patient Seen: 02/13/22 Time Patient Seen: 18:40 Chief complaint: Abd/Chest pain x 2 days- getting worse Narrative: This is a 26 year old male with no known PMH who presented to the emergency room with 2 days of worsening epigastric abdominal pain, nausea, and vomiting. Patient states he began developing epigastric / substernal pain which was sharp, not necessarily associate with food / meals 2 days ago that slowly worsened since then. He has no melena or hematochezia, but the first time he vomited he noticed a few specks of blood. No further blood has been noticed since then. He also says polyuria and polydipsia but no weight loss. He denies any recent fevers, chills, chest pain, palpitations, lower extremity edema, or rash. In the emergency room, patient was mildly tachycardic but the remainder of his vital signs were unremarkable. Laboratory evaluation revealed a mild leukocytosis with WBC 12.4, history is were notable for a glucose of 331, elevated bilirubin of 2.4, with mild transaminitis of AST of 85 and ALT of 133. Triglycerides were 3186, lipase was 9839. COVID-19 testing was negative. Abdominal MRI showed evidence of pancreatitis but no biliary dilatation. Patient was admitted to the ICU for further management of hypertriglyceridemia induced pancreatitis Patient History Medical History (Updated 02/13/22 @ 19:00 by Son Maynard DO) No pertinent past medical history Surgical History (Updated 02/13/22 @ 19:00 by Son Maynard DO) No pertinent past surgical history Family & Social History Family History (Updated 02/13/22 @ 19:00 by Son Maynard DO) Brother Diabetes mellitus Father Diabetes mellitus Social History: household members significant other Prior Living Arrangements Apartment/Condo Safety & Behavioral: Feels Safe in Current Yes Environment Been Physically Hurt or No Threatened By a Person Tobacco & Substance use: Smoking Status Never smoker alcohol intake current alcohol intake frequency a few times a week Substance Use Type marijuana Meds Home Medications and Allergies Allergies Allergy/AdvReac Type Severity Reaction Status Date / Time No Known Drug Allergies Allergy Verified 02/13/22 10:46 Review of Systems Review of Systems Narrative: All other systems reviewed with the patient and are negative unless otherwise stated. Exam Vital Signs (past 8 hours): - 02/13/22 15:37 Pulse Rate 104 H Respiratory Rate 20 Blood Pressure 124/67 Pulse Oximetry 98 Oxygen Delivery Method Room Air Oxygen Delivery Method Room Air Narrative Exam Narrative: General:? Patient is well developed and well nourished, in no distress at this time. HEENT:? Normocephalic, atraumatic, extraocular muscles intact, oral pharynx is clear and mucous membranes are moist. Neck: supple and symmetric, trachea is midline, no cervical adenopathy. Negative for JVD Chest:? Normal AP diameter and contour without kyphoscoliosis, no tachypnea, equal chest rise bilaterally. Lungs:? CTA b/l no wheezing rhonchi or rales. Cardio:?RRR no m/r/g. Abdomen: S minimal tenderness epigastrium / LUQ. No CVA tenderness. Musculoskeletal:? Muscle strength and tone are equal within normal limits, no deformity. Extremities: No edema or joint effusions. No cyanosis or clubbing. Skin:? Pale,? Warm to touch,dry and intact without rashes, ulcerations or petechiae.? Neuro:? Alert and orientated x3,? sensation to touch intact in all extremities, no gross deficits noted of cranial nerves. Psych:? Patient has a well-kept appearance, appropriate affect, mental status attitude thought context and judgment are appropriate for age. Objective Labs Result Diagrams: 02/13/22 11:00 02/13/22 16:14 Labs: Laboratory Results - last 24 hr 02/13/22 02/13/22 02/13/22 10:58 11:00 11:00 WBC 12.4 H RBC 5.77 Hgb 15.9 Hct 46.1 MCV 79.8 L MCH 27.5 MCHC 34.5 RDW 13.1 Plt Count 316 Neut % (Auto) 63.9 Lymph % (Auto) 28.1 [place] % (Auto) 6.5 Eos % (Auto) 1.1 L Baso % (Auto) 0.4 Neut # (Auto) 7900 H Lymph # (Auto) 3500 [place] # (Auto) 800 Eos # (Auto) 100 Baso # (Auto) 100 Sodium 134 L Potassium 5.2 H Chloride 96 L Carbon Dioxide 19 L BUN 15 Creatinine 0.83 Estimated GFR > 60 BUN/Creatinine Ratio 18.1 Glucose 331 H Lactate Calcium 9.3 Total Bilirubin 2.4 H AST 85 H ALT 133 H Alkaline Phosphatase 81 Total Creatine Kinase CK-MB (CK-2) CK-MB (CK-2) Rel Index Troponin I C-Reactive Protein Total Protein 9.6 H Albumin 5.2 H Globulin 4.4 H Albumin/Globulin Ratio 1.2 Triglycerides Lipase 9839 H Procalcitonin SARS-CoV-2 (PCR) Negative 02/13/22 02/13/22 02/13/22 11:00 11:00 11:00 WBC RBC Hgb Hct MCV MCH MCHC RDW Plt Count Neut % (Auto) Lymph % (Auto) [place] % (Auto) Eos % (Auto) Baso % (Auto) Neut # (Auto) Lymph # (Auto) [place] # (Auto) Eos # (Auto) Baso # (Auto) Sodium Potassium Chloride Carbon Dioxide BUN Creatinine Estimated GFR BUN/Creatinine Ratio Glucose Lactate 2.8 H Calcium Total Bilirubin AST ALT Alkaline Phosphatase Total Creatine Kinase 105 CK-MB (CK-2) 0.58 CK-MB (CK-2) Rel Index 0.6 L Troponin I 0.020 C-Reactive Protein Total Protein Albumin Globulin Albumin/Globulin Ratio Triglycerides Lipase Procalcitonin 0.16 SARS-CoV-2 (PCR) 02/13/22 02/13/22 02/13/22 11:00 16:14 16:14 WBC RBC Hgb Hct MCV MCH MCHC RDW Plt Count Neut % (Auto) Lymph % (Auto) [place] % (Auto) Eos % (Auto) Baso % (Auto) Neut # (Auto) Lymph # (Auto) [place] # (Auto) Eos # (Auto) Baso # (Auto) Sodium 133 L Potassium 4.8 Chloride 96 L Carbon Dioxide 24 BUN 14 Creatinine 0.68 Estimated GFR > 60 BUN/Creatinine Ratio 20.6 Glucose 331 H Lactate 1.9 Calcium 8.1 L Total Bilirubin AST ALT Alkaline Phosphatase Total Creatine Kinase CK-MB (CK-2) CK-MB (CK-2) Rel Index Troponin I C-Reactive Protein 2.2 H Total Protein Albumin Globulin Albumin/Globulin Ratio Triglycerides 3186 H Lipase Procalcitonin SARS-CoV-2 (PCR) Assessment & Plan Assessment & Plan narrative: 1. Hypertriglyceridemia induced pancreatitis, acute, present on admission - patient with pain currently well controlled, okay for CLD trial tonight - continue insulin infusion, d5 when glucose <250. - continue to follow TG levels. - continue IV fluids, change to D5 when glucose <250. - appreciate tele-flight communications operator consultation. 2. mild DKA - CO2 of 19 with an elevated anion gap and Glucose >300. Possible this represents a DKA - unclear if type 1 or type 2. Consider DANIS abs depending on A1c result. - being managed with insulin infusion. 3. Probable BENAVIDEZ - suspect BENAVIDEZ contributing to his elevated bilirubin, and transaminase levels given MR abdomen findings of steatosis. - continue to follow. - less likely passed stone though this is a possibility. 4. Obesity - contributes to patient's diabetes, BENAVIDEZ, and possibly elevated TG levels this admission. - dietary consult Code: Full, surrogate patient's partner DVT: Lovenox daily Dispo: Admit to ICU I have utilized all available immediate resources to obtain, update, or review the patient's current medications. I spent 35 minutes providing critical care management this patient. This excludes time spent in performing separately billed procedures. COVID-19 COVID-19 status: Negative Time Spent With Patient Critical Care time: I spent a total of [] minutes of critical care time on this patient's care today; this time is exclusive of procedural time. Quality VTE Deep Vein Thrombosis/Pulmonary Embolism Present on Admission: No MIPS - Admit I confirm the patient?s Advance Care Plan is present, Code status is documented, Surrogate decision maker is in patient?s record [If Yes, STOP here]: Yes
[2022-02-13] MEDS: INSULIN DRIP PREMIX 100 UNIT/100 ML PLAST..BAG 11.793 UNIT IV (19:15)
[2022-02-13] MEDS: SODIUM CHLORIDE 0.9% 1,000 ML 100 ML IV (19:16)
[2022-02-13] MEDS: ATORVASTATIN 20 MG TABLET 80 MG PO (20:20)
[2022-02-13] MEDS: HYDROMORPHONE 1 MG INJ IV (20:58)
[2022-02-13] MEDS: HYDROMORPHONE 2 MG INJ IV (23:42)
[2022-02-14] VITALS (27 sets, daily range): BP systolic 94–145; BP diastolic 50–73; PULSE 93–111; RESP 13–26; TEMP 36.4–37.9; O2SAT 92–96
[2022-02-14] MEDS: ACETAMINOPHEN 325 MG TABLET 650 MG PO ×2 (00:03→10:11)
[2022-02-14] MEDS: HYDROMORPHONE 1 MG INJ IV ×5 (03:32→20:03)
[2022-02-14] MEDS: ONDANSETRON 4 MG/2 ML INJ IV (03:32)
[2022-02-14] MEDS: SODIUM CHLORIDE 0.9% 1,000 ML 100 ML IV ×2 (04:22→14:40)
[2022-02-14 06:44] LABS: Add Manual Diff / Slide Review NO; Basophils Absolute Auto 0 /uL (0-100); Basophils Percent Auto 0.3 % (0-2); Eosinophils Absolute Auto 0 /uL (0-450); Eosinophils Percent Auto 0.1 % (2-4); Hematocrit 41.5 % (41-53); Hemoglobin 14.7 g/dL (13.5-17.5); Lymphocytes Absolute Auto 1200 /uL (1100-4500); Lymphocytes Percent Auto 13.2 % (25-40); Mean Corpuscular HGB Conc 35.5 % (30-36); Mean Corpuscular Hemoglobin 28.3 PG (26-34); Mean Corpuscular Volume 79.8 fL (80-100); Monocytes Absolute Auto 500 /uL (0-900); Neutrophils Absolute Auto 7100 /uL (1500-7000); Neutrophils Percent Auto 80.4 % (50-75); Platelet Count 180 X10^3/uL (150-400); Red Blood Cell Count 5.21 X10^6/uL (4.5-5.9); Red Cell Distribution Width 13.6 % (11.6-14.8); White Blood Cell Count 8.8 X10^3/uL (4.5-11.0)
[2022-02-14 07:00] LABS: Alanine Aminotransferase 90 IU/L (<50); Albumin 3.9 g/dL (3.5-5.0); Albumin Globulin Ratio 1.3 (1.0-2.8); Alkaline Phosphatase 46 U/L (38-126); Aspartate Aminotransferase 39 IU/L (17-59); BUN Creatinine Ratio 20.3 (6-22); Bilirubin Total 1.6 mg/dL (0.2-1.3); Blood Urea Nitrogen 14 mg/dL (9-20); Calcium 7.6 mg/dL (8.4-10.2); Carbon Dioxide 23 mmol/L (22-32); Chloride 101 mmol/L (98-107); Estimated Glomerular Filt Rate > 60 mL/min (>60); Glucose 194 mg/dL (70-100); Magnesium 1.5 mg/dL (1.6-2.3); Sodium 135 mmol/L (137-145); Total Protein 6.9 g/dL (6.3-8.2)
[2022-02-14 07:42] LABS: HEMOLYSIS 88 (0-50); Triglycerides 1106 mg/dL (35-150)
[2022-02-14 08:06] LABS: Hemoglobin A1C% w Est Avg Glu 10.7 % (4.0-6.0)
[2022-02-14] MEDS: FENOFIBRATE, MICRONIZED 67 MG CAPSULE 201 MG PO (08:57)
--- NOTE | 2022-02-14 09:28 | CM.DANOTE ---
DCP: Case received, EMR reviewed and met with patient. Introduced self and role. Was able to get some history from patient. DCP assessment completed with information currently available. Patient is a 26 year old male who admitted yesterday afternoon to the care of the hospitalist team. PCP: No provider. Payer: confirmed: Healthcare [employer]. Patient came to the hospital via private vehicle secondary to having increased abdominal discomfort. Patient was also noted to have vomiting. Notes indicate that patient drinks occasionally, uses marijuana, denies other substances. Patient was noted to have elevated bilirubin, diagnosed with acute pancreatitis. Met with patient in his room. He is alert and oriented, resides in [address] with his significant other, Duncan. He is independent, and works at the [employer]. He does not have a current provider, stated, he is usually pretty healthy, is open to list of providers. P: DCP to continue to follow. Plan is home when patient is deemed medically stable. Cari Quinonez RN/Housekeeper Caregiver Discharge Planning/Care Management CM Discharge Assessment Start: 02/14/22 09:27 Freq: Status: Active Protocol: Document 02/14/22 09:27 (Rec: 02/14/22 09:28 [id number]) Discharge Planning Assessment Assigned Rehab Liaison Cari Quinonez RN/Housekeeper Caregiver Advance Directives? No History Provided By Patient,Medical Record Prior Living Arrangements Apartment/Condo Household Members significant other Type of transporation used prior to Drives own vehicle admit Independent with ADL's Yes Is patient alert and oriented? Yes Caregiver for Another No Barriers to Discharge No Discharge Plan Home Transportation Arrangement Life Partner Referrals Initiated None needed Whiteboard Updated in Patient Room with Yes name and ext. # of Rehab Liaison Review Status In Process Next Review Type Continued Stay Review
[2022-02-14] MEDS: INSULIN DRIP PREMIX 100 UNIT/100 ML PLAST..BAG IV (09:30)
[2022-02-14] MEDS: ENOXAPARIN 40 MG/0.4 ML SYRINGE SUBCUT (10:11)
--- NOTE | 2022-02-14 10:13 | P.TELICUPN_ITS ---
Subjective Subjective IF CAMERA ACTIVATED, patient seen via real-time interactive audiovisual communication: Camera activated Consent obtained for tele-cone machine operator care: Yes Patient Location: ICU Provider location (State): [place] Other participants/roles: na Current Medications Current Medications Medications: Visit Medications (administered) Generic Name Dose Route Start Last Admin Trade Name Freq PRN Reason Stop Dose Admin Acetaminophen 650 mg 02/13/22 23:38 02/14/22 10:11 Acetaminophen 325 Mg Tablet PO 650 mg Q6H PRN Administration Fever/Mild Pain (1-3) Atorvastatin Calcium 80 mg 02/13/22 21:00 02/13/22 20:20 Atorvastatin 20 Mg Tablet PO 80 mg BEDTIME HELLEN Administration Enoxaparin Sodium 40 mg 02/14/22 10:00 02/14/22 10:11 Enoxaparin 40 Mg/0.4 Ml Syringe SUBCUT 40 mg DAILY HELLEN Administration Fenofibrate 201 mg 02/14/22 08:00 02/14/22 08:57 Fenofibrate, Micronized 67 Mg Capsule PO 201 mg DAILY@0800 HELLEN Administration Hydromorphone HCl 1 mg 02/13/22 19:56 02/14/22 06:22 Hydromorphone 1 Mg Inj IV 1 mg Q3H PRN Administration Pain, Moderate (4-6) Hydromorphone HCl 2 mg 02/13/22 19:56 02/13/22 23:42 Hydromorphone 2 Mg Inj IV 2 mg Q3H PRN Administration Pain, Severe (7-10) Sodium Chloride 1,000 mls @ 100 mls/hr 02/13/22 18:15 02/14/22 04:22 Normal Saline 0.9% IV 100 mls/hr CONT HELLEN Administration INSULIN DRIP PREMIX 100 unit in 100 mls @ 11.793 mls/hr 02/13/22 18:45 02/14/22 09:30 Myxredlin Drip Premix IV 0.04 unit/kg/hr TITRATE HELLEN 5 mls/hr Administration Protocol 0.1 UNIT/KG/HR Ondansetron HCl 4 mg 02/13/22 19:57 02/14/22 03:32 Ondansetron 4 Mg/2 Ml Inj IV 4 mg Q4HR PRN Administration Nausea And Vomiting Objective Labs Result Diagrams: 02/14/22 05:55 02/14/22 05:55 Labs: Laboratory Results - last 24 hr 02/13/22 02/13/22 02/13/22 10:58 11:00 11:00 WBC 12.4 H RBC 5.77 Hgb 15.9 Hct 46.1 MCV 79.8 L MCH 27.5 MCHC 34.5 RDW 13.1 Plt Count 316 Neut % (Auto) 63.9 Lymph % (Auto) 28.1 [place] % (Auto) 6.5 Eos % (Auto) 1.1 L Baso % (Auto) 0.4 Neut # (Auto) 7900 H Lymph # (Auto) 3500 [place] # (Auto) 800 Eos # (Auto) 100 Baso # (Auto) 100 Sodium 134 L Potassium 5.2 H Chloride 96 L Carbon Dioxide 19 L BUN 15 Creatinine 0.83 Estimated GFR > 60 BUN/Creatinine Ratio 18.1 Glucose 331 H Hemoglobin A1c Lactate Calcium 9.3 Magnesium Total Bilirubin 2.4 H AST 85 H ALT 133 H Alkaline Phosphatase 81 Total Creatine Kinase CK-MB (CK-2) CK-MB (CK-2) Rel Index Troponin I C-Reactive Protein Total Protein 9.6 H Albumin 5.2 H Globulin 4.4 H Albumin/Globulin Ratio 1.2 Triglycerides Lipase 9839 H Procalcitonin Nasal Screen MRSA (PCR) SARS-CoV-2 (PCR) Negative 02/13/22 02/13/22 02/13/22 11:00 11:00 11:00 WBC RBC Hgb Hct MCV MCH MCHC RDW Plt Count Neut % (Auto) Lymph % (Auto) [place] % (Auto) Eos % (Auto) Baso % (Auto) Neut # (Auto) Lymph # (Auto) [place] # (Auto) Eos # (Auto) Baso # (Auto) Sodium Potassium Chloride Carbon Dioxide BUN Creatinine Estimated GFR BUN/Creatinine Ratio Glucose Hemoglobin A1c Lactate 2.8 H Calcium Magnesium Total Bilirubin AST ALT Alkaline Phosphatase Total Creatine Kinase 105 CK-MB (CK-2) 0.58 CK-MB (CK-2) Rel Index 0.6 L Troponin I 0.020 C-Reactive Protein Total Protein Albumin Globulin Albumin/Globulin Ratio Triglycerides Lipase Procalcitonin 0.16 Nasal Screen MRSA (PCR) SARS-CoV-2 (PCR) 02/13/22 02/13/22 02/13/22 11:00 16:14 16:14 WBC RBC Hgb Hct MCV MCH MCHC RDW Plt Count Neut % (Auto) Lymph % (Auto) [place] % (Auto) Eos % (Auto) Baso % (Auto) Neut # (Auto) Lymph # (Auto) [place] # (Auto) Eos # (Auto) Baso # (Auto) Sodium 133 L Potassium 4.8 Chloride 96 L Carbon Dioxide 24 BUN 14 Creatinine 0.68 Estimated GFR > 60 BUN/Creatinine Ratio 20.6 Glucose 331 H Hemoglobin A1c Lactate 1.9 Calcium 8.1 L Magnesium Total Bilirubin AST ALT Alkaline Phosphatase Total Creatine Kinase CK-MB (CK-2) CK-MB (CK-2) Rel Index Troponin I C-Reactive Protein 2.2 H Total Protein Albumin Globulin Albumin/Globulin Ratio Triglycerides 3186 H Lipase Procalcitonin Nasal Screen MRSA (PCR) SARS-CoV-2 (PCR) 02/13/22 02/14/22 02/14/22 18:30 05:55 05:55 WBC 8.8 RBC 5.21 Hgb 14.7 Hct 41.5 MCV 79.8 L MCH 28.3 MCHC 35.5 RDW 13.6 Plt Count 180 Neut % (Auto) 80.4 H Lymph % (Auto) 13.2 L [place] % (Auto) 6.0 Eos % (Auto) 0.1 L Baso % (Auto) 0.3 Neut # (Auto) 7100 H Lymph # (Auto) 1200 [place] # (Auto) 500 Eos # (Auto) 0 Baso # (Auto) 0 Sodium 135 L Potassium 4.0 Chloride 101 Carbon Dioxide 23 BUN 14 Creatinine 0.69 Estimated GFR > 60 BUN/Creatinine Ratio 20.3 Glucose 194 H D Hemoglobin A1c Lactate Calcium 7.6 L Magnesium 1.5 L Total Bilirubin 1.6 H AST 39 ALT 90 H Alkaline Phosphatase 46 Total Creatine Kinase CK-MB (CK-2) CK-MB (CK-2) Rel Index Troponin I C-Reactive Protein Total Protein 6.9 Albumin 3.9 Globulin 3.0 Albumin/Globulin Ratio 1.3 Triglycerides 1106 H Lipase Procalcitonin Nasal Screen MRSA (PCR) Negative for mrsa SARS-CoV-2 (PCR) 02/14/22 05:55 WBC RBC Hgb Hct MCV MCH MCHC RDW Plt Count Neut % (Auto) Lymph % (Auto) [place] % (Auto) Eos % (Auto) Baso % (Auto) Neut # (Auto) Lymph # (Auto) [place] # (Auto) Eos # (Auto) Baso # (Auto) Sodium Potassium Chloride Carbon Dioxide BUN Creatinine Estimated GFR BUN/Creatinine Ratio Glucose Hemoglobin A1c 10.7 H Lactate Calcium Magnesium Total Bilirubin AST ALT Alkaline Phosphatase Total Creatine Kinase CK-MB (CK-2) CK-MB (CK-2) Rel Index Troponin I C-Reactive Protein Total Protein Albumin Globulin Albumin/Globulin Ratio Triglycerides Lipase Procalcitonin Nasal Screen MRSA (PCR) SARS-CoV-2 (PCR) Exam Vital Signs (past 8 hours): - 02/14/22 03:00 02/14/22 03:00 02/14/22 04:00 Temperature 98.6 F Pulse Rate 104 H 93 H Respiratory Rate 15 13 Blood Pressure 110/63 112/58 L Pulse Oximetry 94 93 Oxygen Delivery Method Room Air Oxygen Flow Rate 02/14/22 05:00 02/14/22 06:00 02/14/22 07:00 Temperature Pulse Rate 103 H 99 H 95 H Respiratory Rate 14 13 15 Blood Pressure 112/57 L 120/59 L 113/65 Pulse Oximetry 92 93 93 Oxygen Delivery Method Oxygen Flow Rate 0 02/14/22 08:00 02/14/22 09:00 02/14/22 10:00 Temperature 97.5 F L 97.5 F L 98.1 F Pulse Rate 105 H 110 H 111 H Respiratory Rate 17 26 H 14 Blood Pressure 102/60 145/65 H 118/73 Pulse Oximetry 93 95 95 Oxygen Delivery Method Oxygen Flow Rate 0 0 0 Oxygen Delivery Method Room Air Oxygen Flow Rate 0 Quality TeleICU VTE Deep Vein Thrombosis/Pulmonary Embolism Present on Admission: No Assessment & Plan Assessment & Plan narrative: patient seen with beside nurse and provider chart/labs imagin reviewed 26 year old male with acute pancreatitis2/2 to hypertriglycerdemia currently afebrile, HD stable minimal pain TG down to 1100 suggest -pain control, minimize opiod use -ivf, monitor for overload -insulin drip, keep glucose above 180s -goal TG less [id number] check q12 -start statin/gemfibrozil/niacin/mvosx5t -monitor ins/outs -replace lytes prn, keep K above 3.3 while on drip -gi/dvt ppx -please call eICU if condition changes total ccm time 45 mins . COVID-19 COVID-19 status: Negative Time Spent With Patient Critical Care time: I spent a total of [] minutes of critical care time on this patient's care today; this time is exclusive of procedural time.
[2022-02-14] MEDS: MAGNESIUM SULFATE 2 GM/50 ML PIGGYBACK IV (11:01)
--- NOTE | 2022-02-14 15:52 | DIET.CONS ---
Dietary Consultation Note Admission Date: 02/13/2022 18:09 Assessment: 26y M admitted for hypertriglyceride related pancreatitis and presumed new DM type 1 vs 2 on insulin drip referred to nutrition for same. Pt lives in home with partner and 5yo son who is not yet in kindergarten. Pt admitted after son's birthday democrat where he had a few cupcakes. Pt works at [employer] but doesn't usually eat there because food choices do not sit well in his stomach. Pt diet is high in pasta and pt drinks 3 cans Pepsi daily. Pt endorses polydypsia and polyuria with fatigue x several months. Pt has brother with DM1 and dad with DM as well. Pt TGs on admission >4,000 and A1c >10. Pt and partner still overwhelmed and soaking it all in, desire visit from DM educator tomorrow for support around dietary changes to support health and avoid repeat pancreatitis. Pt reports some difficulty with intake vegetables sometimes, sometimes he has BM where they are visible and untransformed in stool. Ht: 177.8 cm Wt: 105 kg BMI: 33.2 Last BM: 02/13/22 (02/13/22 18:15) MNA: Ant Score: 22 Diet: 02/13/22 Dinner Clear Liquid Diet Diet Modifications: Nutrition Percent Meal Consumed 0% 02/14/22 13:00 Labs: RBC 5.21 X10^6/uL (4.5-5.9) 02/14/22 05:55 Hgb 14.7 g/dL (13.5-17.5) 02/14/22 05:55 Hct 41.5 % (41-53) 02/14/22 05:55 Creatinine 0.69 mg/dL (0.66-1.25) 02/14/22 05:55 Hemoglobin A1c 10.7 % (4.0-6.0) H 02/14/22 05:55 Lactate 1.9 mmol/L (0.7-2.1) 02/13/22 16:14 Nutrition Diagnosis: altered nutrition related laboratory values (A1c TGs) r/t undesirable food choices aeb pt admitted with TG pancreatitis, TGs >4,000, A1c >10 with daily intake 3 cans Pepsi and high intake pasta. Interventions: 1. Provided initial education on pts current hospitalization and nutrition related knowledge to support health regarding carbs, added sugar, and saturated fat in diet. Monitoring/Evaluations: DM educator to visit pt on Friday morning about 10:30am to continue education and supportive care. Electronically Signed by: Joleen Marin 02/14/22 15:52 Clinical Dietitian [address] [id number]
--- NOTE | 2022-02-14 18:50 | PM.PN.1 ---
Subjective Subjective Date Patient Seen: 02/14/22 Interval history: 26 M admitted with hypertriglyceridemia pancreatitis. He was also found to have diabetes. His triglyceride was markedly improved but still above 500, he remains on an insulin infusion today. His pain is much better, his diet was advanced to clear liquids thus far. Exam Vital Signs (past 8 hours): - 02/14/22 11:00 02/14/22 11:00 02/14/22 11:00 Temperature 98.2 F Pulse Rate 104 H 110 H Respiratory Rate 16 15 Blood Pressure 103/62 103/62 Pulse Oximetry 93 96 Oxygen Delivery Method Oxygen Flow Rate 0 02/14/22 12:00 02/14/22 13:00 02/14/22 14:00 Temperature 97.9 F 99.1 F Pulse Rate 100 H 101 H 103 H Respiratory Rate 20 18 19 Blood Pressure 113/62 98/54 L 100/61 Pulse Oximetry 95 95 93 Oxygen Delivery Method Oxygen Flow Rate 0 0 0 02/14/22 15:00 02/14/22 15:00 02/14/22 16:00 Temperature 99.4 F Pulse Rate 106 H 103 H Respiratory Rate 22 18 Blood Pressure 123/72 94/52 L Pulse Oximetry 96 93 Oxygen Delivery Method Room Air Oxygen Flow Rate 0 0 02/14/22 17:00 Temperature 98.6 F Pulse Rate 104 H Respiratory Rate 23 Blood Pressure 105/65 Pulse Oximetry 93 Oxygen Delivery Method Oxygen Flow Rate 0 Oxygen Delivery Method Room Air Oxygen Flow Rate 0 Narrative Exam Narrative: General:? Patient is well developed and well nourished, in no distress at this time. HEENT:? Normocephalic, atraumatic, extraocular muscles intact, oral pharynx is clear and mucous membranes are moist. Neck: supple and symmetric, trachea is midline, no cervical adenopathy. Negative for JVD Chest:? Normal AP diameter and contour without kyphoscoliosis, no tachypnea, equal chest rise bilaterally. Lungs:? CTA b/l no wheezing rhonchi or rales. Cardio:?RRR no m/r/g. Abdomen: S minimal tenderness epigastrium / LUQ. No CVA tenderness. Musculoskeletal:? Muscle strength and tone are equal within normal limits, no deformity. Extremities: No edema or joint effusions. No cyanosis or clubbing. Skin:? Pale,? Warm to touch,dry and intact without rashes, ulcerations or petechiae.? Neuro:? Alert and orientated x3,? sensation to touch intact in all extremities, no gross deficits noted of cranial nerves. Psych:? Patient has a well-kept appearance, appropriate affect, mental status attitude thought context and judgment are appropriate for age. Objective Labs Result Diagrams: 02/14/22 05:55 02/14/22 05:55 Labs: Laboratory Results - last 24 hr 02/13/22 02/14/22 02/14/22 18:30 05:55 05:55 WBC 8.8 RBC 5.21 Hgb 14.7 Hct 41.5 MCV 79.8 L MCH 28.3 MCHC 35.5 RDW 13.6 Plt Count 180 Neut % (Auto) 80.4 H Lymph % (Auto) 13.2 L [place] % (Auto) 6.0 Eos % (Auto) 0.1 L Baso % (Auto) 0.3 Neut # (Auto) 7100 H Lymph # (Auto) 1200 [place] # (Auto) 500 Eos # (Auto) 0 Baso # (Auto) 0 Sodium 135 L Potassium 4.0 Chloride 101 Carbon Dioxide 23 BUN 14 Creatinine 0.69 Estimated GFR > 60 BUN/Creatinine Ratio 20.3 Glucose 194 H D Hemoglobin A1c Calcium 7.6 L Magnesium 1.5 L Total Bilirubin 1.6 H AST 39 ALT 90 H Alkaline Phosphatase 46 Total Protein 6.9 Albumin 3.9 Globulin 3.0 Albumin/Globulin Ratio 1.3 Triglycerides 1106 H Nasal Screen MRSA (PCR) Negative for mrsa 02/14/22 05:55 WBC RBC Hgb Hct MCV MCH MCHC RDW Plt Count Neut % (Auto) Lymph % (Auto) [place] % (Auto) Eos % (Auto) Baso % (Auto) Neut # (Auto) Lymph # (Auto) [place] # (Auto) Eos # (Auto) Baso # (Auto) Sodium Potassium Chloride Carbon Dioxide BUN Creatinine Estimated GFR BUN/Creatinine Ratio Glucose Hemoglobin A1c 10.7 H Calcium Magnesium Total Bilirubin AST ALT Alkaline Phosphatase Total Protein Albumin Globulin Albumin/Globulin Ratio Triglycerides Nasal Screen MRSA (PCR) FORMERLY [facility], 1928–1983 Medical History (Updated 02/13/22 @ 19:00 by Son Maynard DO) No pertinent past medical history Surgical History (Updated 02/13/22 @ 19:00 by Son Maynard DO) No pertinent past surgical history Family History (Updated 02/13/22 @ 19:00 by Son Maynard DO) Brother Diabetes mellitus Father Diabetes mellitus Social History household members: significant other Smoking Status: Never smoker alcohol intake: current Assessment & Plan Assessment & Plan narrative: 1. Hypertriglyceridemia induced pancreatitis, acute, present on admission - patient with pain currently well controlled, continue clears for now - continue insulin infusion, d5 when glucose <250. - continue to follow TG levels. - continue IV fluids, change to D5 when glucose <250. - appreciate tele-milk sampler consultation. 2. mild DKA - CO2 of 19 with an elevated anion gap and Glucose >300. Possible this represents a DKA - unclear if type 1 or type 2. A1c is 10.7%, DANIS antibodies ordered, Suspect type 2 but would recommend discharge on insulin therapy given degree of A1c elevation. - being managed with insulin infusion as noted above, GAP has closed and acidosis has resolved. 3. Probable BENAVIDEZ - suspect BENAVIDEZ contributing to his elevated bilirubin, and transaminase levels given MR abdomen findings of steatosis. - continue to follow. - less likely passed stone though this is a possibility. 4. Obesity - contributes to patient's diabetes, BENAVIDEZ, and possibly elevated TG levels this admission. - dietary consult Code: Full, surrogate patient's partner DVT: Lovenox daily Dispo: Admit to ICU I have utilized all available immediate resources to obtain, update, or review the patient's current medications. I spent 35 minutes providing critical care management this patient. This excludes time spent in performing separately billed procedures. COVID-19 COVID-19 status: Negative Time Spent With Patient Critical Care time: I spent a total of [] minutes of critical care time on this patient's care today; this time is exclusive of procedural time. Quality VTE Deep Vein Thrombosis/Pulmonary Embolism Present on Admission: No
[2022-02-14] MEDS: ATORVASTATIN 20 MG TABLET 80 MG PO (20:04)
[2022-02-14 20:11] LABS: Triglycerides 632 mg/dL (35-150)
--- NOTE | 2022-02-14 20:22 | P.ICUMDRN_ITS ---
- Date Patient Seen: 02/14/22 :: This patient was seen via real time interactive two-way audiovisual telecommunic ation. Note: Patient admitted for acute pancreatitis secondary to hypertriglyceridemia. On insulin 5 units/hr. Will switch to D51/2 NS running at 100 ml/hr. Goal BS 150- 250. Trend daily triglyceride level. D/w RN at bedside.
--- NOTE | 2022-02-14 20:22 | PM.ICURNDS ---
- Date Patient Seen: 02/14/22 :: This patient was seen via real time interactive two-way audiovisual telecommunication. Note: Patient admitted for acute pancreatitis secondary to hypertriglyceridemia. On insulin 5 units/hr. Will switch to D51/2 NS running at 100 ml/hr. Goal BS 150-250. Trend daily triglyceride level. D/w RN at bedside.
[2022-02-14] MEDS: DEXTROSE 5%-0.45% NS 1,000 ML 100 ML IV (21:07)
[2022-02-15] VITALS (18 sets, daily range): BP systolic 91–116; BP diastolic 53–69; PULSE 88–105; RESP 12–21; TEMP 36.4–37.1; O2SAT 91–98
[2022-02-15] MEDS: HYDROMORPHONE 1 MG INJ IV ×3 (00:14→09:21)
[2022-02-15] MEDS: ONDANSETRON 4 MG/2 ML INJ IV ×2 (00:20→09:03)
[2022-02-15] MEDS: INSULIN DRIP PREMIX 100 UNIT/100 ML PLAST..BAG IV (05:41)
[2022-02-15 06:30] LABS: Add Manual Diff / Slide Review NO; Basophils Absolute Auto 0 /uL (0-100); Basophils Percent Auto 0.3 % (0-2); Eosinophils Absolute Auto 100 /uL (0-450); Eosinophils Percent Auto 0.7 % (2-4); Hematocrit 40.9 % (41-53); Hemoglobin 14.3 g/dL (13.5-17.5); Lymphocytes Absolute Auto 1600 /uL (1100-4500); Lymphocytes Percent Auto 15.6 % (25-40); Mean Corpuscular HGB Conc 34.9 % (30-36); Mean Corpuscular Hemoglobin 28.1 PG (26-34); Mean Corpuscular Volume 80.5 fL (80-100); Monocytes Absolute Auto 700 /uL (0-900); Monocytes Percent Auto 6.7 % (3-14); Neutrophils Absolute Auto 7800 /uL (1500-7000); Neutrophils Percent Auto 76.7 % (50-75); Platelet Count 165 X10^3/uL (150-400); Red Blood Cell Count 5.08 X10^6/uL (4.5-5.9); Red Cell Distribution Width 13.9 % (11.6-14.8); White Blood Cell Count 10.2 X10^3/uL (4.5-11.0)
[2022-02-15 06:47] LABS: Alanine Aminotransferase 71 IU/L (<50); Albumin 3.6 g/dL (3.5-5.0); Albumin Globulin Ratio 1.2 (1.0-2.8); Alkaline Phosphatase 57 U/L (38-126); Aspartate Aminotransferase 38 IU/L (17-59); BUN Creatinine Ratio 13.1 (6-22); Bilirubin Total 2.1 mg/dL (0.2-1.3); Blood Urea Nitrogen 11 mg/dL (9-20); Calcium 7.8 mg/dL (8.4-10.2); Carbon Dioxide 27 mmol/L (22-32); Chloride 98 mmol/L (98-107); Estimated Glomerular Filt Rate > 60 mL/min (>60); Globulin 3.1 g/dL (1.7-4.1); Glucose 144 mg/dL (70-100); HEMOLYSIS < 15 (0-50); Magnesium 2.2 mg/dL (1.6-2.3); Potassium 3.5 mmol/L (3.4-5.1); Sodium 134 mmol/L (137-145); Total Protein 6.7 g/dL (6.3-8.2); Triglycerides 512 mg/dL (35-150)
[2022-02-15] MEDS: DEXTROSE 5%-0.45% NS 1,000 ML 100 ML IV (07:32)
[2022-02-15] MEDS: POTASSIUM CHLORIDE 20 MEQ/15 ML UDC 40 MEQ PO (08:04)
[2022-02-15] MEDS: FENOFIBRATE, MICRONIZED 67 MG CAPSULE 201 MG PO (08:04)
[2022-02-15] MEDS: INSULIN GLARGINE 100 UNIT/ML 3ML PEN 10 UNIT SUBCUT (09:03)
[2022-02-15] MEDS: ENOXAPARIN 40 MG/0.4 ML SYRINGE SUBCUT (09:04)
--- NOTE | 2022-02-15 09:50 | P.TELICUPN_ITS ---
Subjective Subjective IF CAMERA ACTIVATED, patient seen via real-time interactive audiovisual communication: Camera activated Consent obtained for tele-malt house operator care: Yes Patient Location: ICU Provider location (State): [place] Other participants/roles: Dr. Maynard and RN Interval history: Off insulin infusion. TG level 512. Still has abdominal pain. Current Medications Current Medications Medications: Visit Medications (administered) Generic Name Dose Route Start Last Admin Trade Name Freq PRN Reason Stop Dose Admin Acetaminophen 650 mg 02/13/22 23:38 02/14/22 10:11 Acetaminophen 325 Mg Tablet PO 650 mg Q6H PRN Administration Fever/Mild Pain (1-3) Atorvastatin Calcium 80 mg 02/13/22 21:00 02/14/22 20:04 Atorvastatin 20 Mg Tablet PO 80 mg BEDTIME HELLEN Administration Enoxaparin Sodium 40 mg 02/14/22 10:00 02/15/22 09:04 Enoxaparin 40 Mg/0.4 Ml Syringe SUBCUT 40 mg DAILY HELLEN Administration Fenofibrate 201 mg 02/14/22 08:00 02/15/22 08:04 Fenofibrate, Micronized 67 Mg Capsule PO 201 mg DAILY@0800 HELLEN Administration Hydromorphone HCl 1 mg 02/13/22 19:56 02/15/22 09:21 Hydromorphone 1 Mg Inj IV 1 mg Q3H PRN Administration Pain, Moderate (4-6) Hydromorphone HCl 2 mg 02/13/22 19:56 02/13/22 23:42 Hydromorphone 2 Mg Inj IV 2 mg Q3H PRN Administration Pain, Severe (7-10) Sodium Chloride 1,000 mls @ 100 mls/hr 02/13/22 18:15 02/14/22 21:07 Normal Saline 0.9% IV 0 mls/hr CONT HELLEN Infusion Dextrose/Sodium Chloride 1,000 mls @ 100 mls/hr 02/14/22 20:45 02/15/22 07:32 Dextrose 5%-0.45% Ns IV 100 mls/hr CONT HELLEN Administration Insulin Glargine 10 unit 02/15/22 09:00 02/15/22 09:03 Insulin Glargine 100 Unit/Ml 3ml Pen SUBCUT 10 unit DAILY HELLEN Administration Ondansetron HCl 4 mg 02/13/22 19:57 09/30/22 09:03 Ondansetron 4 Mg/2 Ml Inj IV 4 mg Q4HR PRN Administration Nausea And Vomiting Objective Labs Result Diagrams: 02/15/22 05:47 02/15/22 05:47 Labs: Laboratory Results - last 24 hr 02/14/22 02/15/22 02/15/22 19:42 05:47 05:47 WBC 10.2 RBC 5.08 Hgb 14.3 Hct 40.9 L MCV 80.5 MCH 28.1 MCHC 34.9 RDW 13.9 Plt Count 165 Neut % (Auto) 76.7 H Lymph % (Auto) 15.6 L [place] % (Auto) 6.7 Eos % (Auto) 0.7 L Baso % (Auto) 0.3 Neut # (Auto) 7800 H Lymph # (Auto) 1600 [place] # (Auto) 700 Eos # (Auto) 100 Baso # (Auto) 0 Sodium 134 L Potassium 3.5 Chloride 98 Carbon Dioxide 27 BUN 11 Creatinine 0.84 Estimated GFR > 60 BUN/Creatinine Ratio 13.1 Glucose 144 H Calcium 7.8 L Magnesium 2.2 Total Bilirubin 2.1 H AST 38 ALT 71 H Alkaline Phosphatase 57 Total Protein 6.7 Albumin 3.6 Globulin 3.1 Albumin/Globulin Ratio 1.2 Triglycerides 632 H 512 H Exam Vital Signs (past 8 hours): - 02/15/22 02:00 02/15/22 03:00 02/15/22 04:00 Temperature Pulse Rate 97 H 96 H Respiratory Rate 16 17 Blood Pressure 116/68 110/64 Pulse Oximetry 93 94 Oxygen Delivery Method Room Air Oxygen Flow Rate 02/15/22 04:00 02/15/22 05:00 02/15/22 06:00 Temperature 97.5 F L Pulse Rate 98 H 96 H 93 H Respiratory Rate 15 20 20 Blood Pressure 107/58 L 115/61 103/68 Pulse Oximetry 94 94 91 Oxygen Delivery Method Oxygen Flow Rate 02/15/22 07:00 02/15/22 07:00 02/15/22 07:30 Temperature Pulse Rate 94 H 94 H Respiratory Rate 16 16 Blood Pressure 106/62 Pulse Oximetry 92 92 Oxygen Delivery Method Oxygen Flow Rate 02/15/22 08:00 02/15/22 08:00 02/15/22 08:00 Temperature 98.5 F Pulse Rate 92 H Respiratory Rate 15 Blood Pressure 91/53 L Pulse Oximetry 93 Oxygen Delivery Method Room Air Oxygen Flow Rate 02/15/22 08:30 02/15/22 09:00 02/15/22 09:00 Temperature Pulse Rate 105 H 93 H Respiratory Rate 21 17 Blood Pressure 97/61 Pulse Oximetry 95 94 Oxygen Delivery Method Oxygen Flow Rate 0 Oxygen Delivery Method Room Air Oxygen Flow Rate 0 Quality TeleICU VTE Deep Vein Thrombosis/Pulmonary Embolism Present on Admission: No Assessment & Plan Assessment & Plan narrative: # Acute pancreatitis -- Secondary to hypertriglyceridemia -- On IVF and pain control -- Advance diet as tolerated -- TG downtrending # Hypertriglyceridemia -- TG level 512 -- Off insulin infusion -- On fenofibrate and lipitor -- Daily TG level -- Check lipid panel # DM -- Newly diagnosed -- Transition to ISS -- Goal BS < 180 -- Low carb diet -- Need DM education D/w RN and Dr. Maynard. Time Spent With Patient Time with patient: less than 30 minutes Critical Care time: I spent a total of [] minutes of critical care time on this patient's care today; this time is exclusive of procedural time.
[2022-02-15] MEDS: INSULIN LISPRO 100 UNIT/ML 3ML VIAL SUBCUT ×3 (12:14→21:53)
--- NOTE | 2022-02-15 12:53 | DIET.PN1 ---
Dietary Progress Note Assessment: 26 y/o M admitted for hypertriglyceride related pancreatitis. Newly diagnosed with diabetes with HgA1c of 10.7%. Waiting on DANIS antibodies. Endorses FH of T1Dm with his brother (since age 5) and T2DM with insulin pump therapy with father. No other DM FH per report. Reports high carb intake prior to diagnosis. States his partner was vegetarian when they met. They often leave out proteins from meals, ie half a box of pasta with sauce. Limited vegetable intake. Many days he may only consume one meal per day, dinner. Today he has questions about insulin after d/c and about carb portions. Plans to establish care with a PCP, currently none. Plans to attend DSME OP. Works at local [employer]. Most of recent BG <180 mg/dL Current DM Meds: 10u glargine + Lispro ac Ht: 177.8 cm Wt: 105 kg BMI: 33.2 Last BM: 02/13/22 (02/13/22 18:15) MNA: Ant Score: 21 Diet: 02/15/22 Breakfast Carbohydrate Consistent Diet Diet Modifications: Carbohydrate level: Large (4 CHO) Nutrition Percent Meal Consumed 25% 02/15/22 09:10 Percent Meal Consumed 0% 02/14/22 13:00 Labs: RBC 5.08 X10^6/uL (4.5-5.9) 02/15/22 05:47 Hgb 14.3 g/dL (13.5-17.5) 02/15/22 05:47 Hct 40.9 % (41-53) L 02/15/22 05:47 Creatinine 0.84 mg/dL (0.66-1.25) 02/15/22 05:47 Hemoglobin A1c 10.7 % (4.0-6.0) H 02/14/22 05:55 Lactate 1.9 mmol/L (0.7-2.1) 02/13/22 16:14 Nutrition Diagnosis: Nutrition knowledge deficit r/t new dx of DM aeb hgA1c of 10.7% Interventions: 1. Plate method review, carb counting, and pairing macronutrients. Brief review of types of DM. 2. Brief review of types of insulin, long vs short acting. Since type of DM is unclear, insulin long-term plan is unclear. Plan is to d/c on insulin. 3. Outpatient DSME resource and contact info Nutrition rx: 45-60g CHO per meal; 15-30g CHO per snack Monitoring/Evaluations: prn. OP DSME recommended. He seems very receptive and plans to acquire a referral once her is established with PCP care. Provided my contact info if he has any questions. Electronically Signed by: Rosa Elena Arredondo 02/15/22 12:53 Clinical Dietitian [address] [address]
[2022-02-15] MEDS: OXYCODONE IR 5 MG TABLET PO ×2 (12:57→21:54)
[2022-02-15] MEDS: OXYCODONE IR 10 MG TABLET PO (16:03)
--- NOTE | 2022-02-15 16:15 | PM.PN.1 ---
Subjective Subjective Date Patient Seen: 02/15/22 Interval history: 26 M admitted with hypertriglyceridemia pancreatitis. He was also found to have diabetes. His triglyceride was markedly improved today very near 500. He was taken off of insulin infusion this morning. Still continues to have mild nausea and pain from pancreatitis. Exam Vital Signs (past 8 hours): - 02/15/22 08:30 02/15/22 09:00 02/15/22 09:00 Temperature Pulse Rate 105 H 93 H Respiratory Rate 21 17 Blood Pressure 97/61 Pulse Oximetry 95 94 Oxygen Delivery Method Oxygen Flow Rate 0 02/15/22 09:30 02/15/22 10:00 02/15/22 10:00 Temperature 98.7 F Pulse Rate 94 H 92 H Respiratory Rate 12 17 Blood Pressure 108/64 Pulse Oximetry 97 93 Oxygen Delivery Method Oxygen Flow Rate 0 02/15/22 10:30 02/15/22 11:00 02/15/22 11:00 Temperature 98 F Pulse Rate 105 H 90 Respiratory Rate 19 18 Blood Pressure 97/56 L Pulse Oximetry 95 94 Oxygen Delivery Method Oxygen Flow Rate 0 02/15/22 12:00 Temperature Pulse Rate Respiratory Rate Blood Pressure Pulse Oximetry Oxygen Delivery Method Room Air Oxygen Flow Rate Oxygen Delivery Method Room Air Oxygen Flow Rate 0 Narrative Exam Narrative: General:? Patient is well developed and well nourished, in no distress at this time. HEENT:? Normocephalic, atraumatic, extraocular muscles intact, oral pharynx is clear and mucous membranes are moist. Neck: supple and symmetric, trachea is midline, no cervical adenopathy. Negative for JVD Chest:? Normal AP diameter and contour without kyphoscoliosis, no tachypnea, equal chest rise bilaterally. Lungs:? CTA b/l no wheezing rhonchi or rales. Cardio:?RRR no m/r/g. Abdomen: S minimal tenderness epigastrium / LUQ. No CVA tenderness. Musculoskeletal:? Muscle strength and tone are equal within normal limits, no deformity. Extremities: No edema or joint effusions. No cyanosis or clubbing. Skin:? Pale,? Warm to touch,dry and intact without rashes, ulcerations or petechiae.? Neuro:? Alert and orientated x3,? sensation to touch intact in all extremities, no gross deficits noted of cranial nerves. Psych:? Patient has a well-kept appearance, appropriate affect, mental status attitude thought context and judgment are appropriate for age. Objective Labs Result Diagrams: 02/15/22 05:47 02/15/22 05:47 Labs: Laboratory Results - last 24 hr 02/14/22 02/15/22 02/15/22 19:42 05:47 05:47 WBC 10.2 RBC 5.08 Hgb 14.3 Hct 40.9 L MCV 80.5 MCH 28.1 MCHC 34.9 RDW 13.9 Plt Count 165 Neut % (Auto) 76.7 H Lymph % (Auto) 15.6 L [place] % (Auto) 6.7 Eos % (Auto) 0.7 L Baso % (Auto) 0.3 Neut # (Auto) 7800 H Lymph # (Auto) 1600 [place] # (Auto) 700 Eos # (Auto) 100 Baso # (Auto) 0 Sodium 134 L Potassium 3.5 Chloride 98 Carbon Dioxide 27 BUN 11 Creatinine 0.84 Estimated GFR > 60 BUN/Creatinine Ratio 13.1 Glucose 144 H Calcium 7.8 L Magnesium 2.2 Total Bilirubin 2.1 H AST 38 ALT 71 H Alkaline Phosphatase 57 Total Protein 6.7 Albumin 3.6 Globulin 3.1 Albumin/Globulin Ratio 1.2 Triglycerides 632 H 512 H [facility] Medical History (Updated 02/13/22 @ 19:00 by Son Maynard DO) No pertinent past medical history Surgical History (Updated 02/13/22 @ 19:00 by Son Maynard DO) No pertinent past surgical history Family History (Updated 02/13/22 @ 19:00 by Son Maynard DO) Brother Diabetes mellitus Father Diabetes mellitus Social History household members: significant other Smoking Status: Never smoker alcohol intake: current Assessment & Plan Assessment & Plan narrative: 1. Hypertriglyceridemia induced pancreatitis, acute, present on admission - patient with pain currently well controlled, advanced to low fat diet but still with some nausea and pain. - continued insulin infusion, and d5 when glucose <250. This was discontinued today once TG was very near 500. - started fenofibrate. 2. mild DKA - CO2 of 19 with an elevated anion gap and Glucose >300. This suggets presentation with a mild DKA. - unclear if type 1 or type 2. A1c is 10.7%, DANIS antibodies ordered, Suspect type 2 but would recommend discharge on insulin therapy given degree of A1c elevation. - being managed with insulin infusion as noted above, GAP has closed and acidosis has resolved and now that TG level is near have transitioned to basal insulin. - started 10 lantus this AM, continue sliding scale therapies. Will need adjustments. 3. Probable BENAVIDEZ - suspect BENAVIDEZ contributing to his elevated bilirubin, and transaminase levels given MR abdomen findings of steatosis. - continue to follow. - less likely passed stone, though this is a possibility. 4. Obesity - contributes to patient's diabetes, BENAVIDEZ, and possibly elevated TG levels this admission. - dietary consult Code: Full, surrogate patient's partner DVT: Lovenox daily Dispo: Admitted to ICU, stable for floor today now that he is off of insulin infusion. I have utilized all available immediate resources to obtain, update, or review the patient's current medications. I spent 35 minutes providing critical care management this patient. This excludes time spent in performing separately billed procedures. COVID-19 COVID-19 status: Negative Time Spent With Patient Critical Care time: I spent a total of [] minutes of critical care time on this patient's care today; this time is exclusive of procedural time. Quality VTE Deep Vein Thrombosis/Pulmonary Embolism Present on Admission: No
--- NOTE | 2022-02-15 18:09 | PC.NURSE ---
Pt A&O x4, pain well controlled with PO meds, ambulates. VSS. Off insulin gtt, with sliding scale & lantus. Tolerating regular diet, hypoactive BS.
[2022-02-15] MEDS: ACETAMINOPHEN 325 MG TABLET 650 MG PO (19:55)
[2022-02-15] MEDS: ATORVASTATIN 20 MG TABLET 80 MG PO (20:00)
[2022-02-16] VITALS (8 sets, daily range): BP systolic 94–127; BP diastolic 52–79; PULSE 89–97; RESP 14–21; TEMP 36.6–37.2; O2SAT 96–97
[2022-02-16] MEDS: OXYCODONE IR 5 MG TABLET PO ×3 (01:54→19:39)
[2022-02-16] MEDS: OXYCODONE IR 10 MG TABLET PO ×2 (04:48→13:25)
[2022-02-16] MEDS: ONDANSETRON 4 MG/2 ML INJ IV ×3 (04:50→19:42)
[2022-02-16 05:20] LABS: Add Manual Diff / Slide Review NO; Basophils Absolute Auto 200 /uL (0-100); Basophils Percent Auto 2.7 % (0-2); Eosinophils Absolute Auto 100 /uL (0-450); Eosinophils Percent Auto 1.3 % (2-4); Hematocrit 38.6 % (41-53); Hemoglobin 13.3 g/dL (13.5-17.5); Lymphocytes Absolute Auto 1100 /uL (1100-4500); Mean Corpuscular HGB Conc 34.5 % (30-36); Mean Corpuscular Volume 81.1 fL (80-100); Monocytes Absolute Auto 400 /uL (0-900); Monocytes Percent Auto 5.5 % (3-14); Neutrophils Absolute Auto 6300 /uL (1500-7000); Neutrophils Percent Auto 77.5 % (50-75); Platelet Count 168 X10^3/uL (150-400); Red Blood Cell Count 4.77 X10^6/uL (4.5-5.9); Red Cell Distribution Width 13.6 % (11.6-14.8); White Blood Cell Count 8.1 X10^3/uL (4.5-11.0)
[2022-02-16 05:27] LABS: Cholesterol 202 mg/dL (140-199); HDL Cholesterol 16 mg/dL (40-60)
[2022-02-16 05:35] LABS: Triglycerides 763 mg/dL (35-150)
[2022-02-16 06:09] LABS: Alanine Aminotransferase 78 IU/L (<50); Albumin 3.5 g/dL (3.5-5.0); Albumin Globulin Ratio 1.1 (1.0-2.8); Alkaline Phosphatase 78 U/L (38-126); Aspartate Aminotransferase 54 IU/L (17-59); BUN Creatinine Ratio 11.5 (6-22); Bilirubin Total 1.8 mg/dL (0.2-1.3); Blood Urea Nitrogen 9 mg/dL (9-20); Calcium 8.1 mg/dL (8.4-10.2); Carbon Dioxide 23 mmol/L (22-32); Chloride 98 mmol/L (98-107); Estimated Glomerular Filt Rate > 60 mL/min (>60); Globulin 3.2 g/dL (1.7-4.1); Glucose 191 mg/dL (70-100); HEMOLYSIS < 15 (0-50); Magnesium 2.1 mg/dL (1.6-2.3); Potassium 3.7 mmol/L (3.4-5.1); Sodium 132 mmol/L (137-145); Total Protein 6.7 g/dL (6.3-8.2)
[2022-02-16] MEDS: INSULIN LISPRO 100 UNIT/ML 3ML VIAL SUBCUT ×4 (08:14→21:30)
[2022-02-16] MEDS: ENOXAPARIN 40 MG/0.4 ML SYRINGE SUBCUT (08:24)
[2022-02-16] MEDS: FENOFIBRATE, MICRONIZED 67 MG CAPSULE 201 MG PO (08:24)
[2022-02-16] MEDS: INSULIN GLARGINE 100 UNIT/ML 3ML PEN 10 UNIT SUBCUT (08:26)
--- NOTE | 2022-02-16 13:33 | P.PN_ITS ---
Subjective Subjective Date Patient Seen: 02/16/22 Interval history: 26-year-old gentleman presently hospital day 3 admitted with hypertriglyceridemia induced acute pancreatitis as well as new diagnosis of diabetes mellitus. Patient was taken off of insulin drip yesterday. He has been tolerating Lantus 10 units subQ daily. He has been practicing on an orange with good results. He is familiar with diabetes treatment as both his brother and father have diabetes. He states he is having difficulty with his diet and was only able to take 4 bites of a dry turkey sandwich this afternoon. He continues to have pain and nausea. He does not feel ready to go home. Exam Vital Signs (past 8 hours): - 02/16/22 08:35 02/16/22 07:00 02/16/22 12:00 Temperature 98.0 F 97.9 F Pulse Rate 90 92 H Respiratory Rate 19 21 Blood Pressure 115/73 115/68 Pulse Oximetry 96 96 Oxygen Delivery Method Room Air Oxygen Flow Rate 0 0 Oxygen Delivery Method Room Air Oxygen Flow Rate 0 Narrative Exam Narrative: GEN: Uncomfortable appearing adult male, Alert and oriented x 3 HEENT:NC, Face symmetric CHEST: Respiratory excursions symmetric, CTAB CV: RRR, no M/R/G ABD: Soft, mildly diffusely tender/ND, BT present in all 4 quadrants, body habitus limits exam EXTR: warm, well perfused, no C/C/E SKIN: warm and dry, no rash NEURO: Alert and oriented x 3, nonfocal Objective Labs Result Diagrams: 02/16/22 04:27 02/16/22 04:27 Labs: Laboratory Results - last 24 hr 02/16/22 02/16/22 02/16/22 04:27 04:27 04:27 WBC 8.1 RBC 4.77 Hgb 13.3 L Hct 38.6 L MCV 81.1 MCH 28.0 MCHC 34.5 RDW 13.6 Plt Count 168 Neut % (Auto) 77.5 H Lymph % (Auto) 13.0 L [place] % (Auto) 5.5 Eos % (Auto) 1.3 L Baso % (Auto) 2.7 H Neut # (Auto) 6300 Lymph # (Auto) 1100 [place] # (Auto) 400 Eos # (Auto) 100 Baso # (Auto) 200 H Sodium 132 L Potassium 3.7 Chloride 98 Carbon Dioxide 23 BUN 9 Creatinine 0.78 Estimated GFR > 60 BUN/Creatinine Ratio 11.5 Glucose 191 H Calcium 8.1 L Magnesium 2.1 Total Bilirubin 1.8 H AST 54 ALT 78 H Alkaline Phosphatase 78 Total Protein 6.7 Albumin 3.5 Globulin 3.2 Albumin/Globulin Ratio 1.1 Triglycerides 763 H Cholesterol 202 H LDL Cholesterol, Calc TNP HDL Cholesterol 16 L PFSH Medical History (Updated 02/13/22 @ 19:00 by Son Maynard DO) No pertinent past medical history Surgical History (Updated 02/13/22 @ 19:00 by Son Maynard DO) No pertinent past surgical history Family History (Updated 02/13/22 @ 19:00 by Son Maynard DO) Brother Diabetes mellitus Father Diabetes mellitus Social History household members: significant other Smoking Status: Never smoker alcohol intake: current Assessment & Plan Assessment & Plan narrative: 1. Acute pancreatitis, secondary to hypertriglyceridemia Patient is having ongoing pain secondary to his pancreatitis. He is on a controlled carbohydrate diet. Encouraged him to maintain his hydration and the only if he is not having pain and nausea. Continue oxycodone as needed. Triglycerides are gradually improving. Continues on fenofibrate and atorvastatin. 2. Hypertriglyceridemia As noted, remains on atorvastatin and fenofibrate. Triglycerides are improved from 3186 on admission to 763 today. 3. Diabetes mellitus Likely type 2 though hellen antibodies are still pending. He has required a total of 12 units of list pro in the past 24 hours. Will increase his Lantus to 15 units daily. Blood sugars have ranged from 189-209 in the past 24 hours. 4. Mild DKA Resolved. 5. Probable non alcoholic steatohepatitis Abdominal MRI revealed no evidence of biliary ductal dilatation or cholelithiasis. Hepatic steatosis was noted. 6. Class 1 obesity BMI is 33.2. Will benefit from weight reduction Code status Full Prophylaxis On Lovenox Despite physician Likely discharge home in 24 hours. Time Spent With Patient Critical Care time: I spent a total of [] minutes of critical care time on this patient's care today; this time is exclusive of procedural time. Quality VTE Deep Vein Thrombosis/Pulmonary Embolism Present on Admission: No
--- NOTE | 2022-02-16 14:52 | CM.DPNOTE ---
Discharge Planning Note: Patient will not be discharging today, still not feeling well, nausea. Plan: When medically stable patient will return home with partner. Patient is independent. Angle Roberts RN/DCP
[2022-02-16] MEDS: ATORVASTATIN 20 MG TABLET 80 MG PO (21:10)
[2022-02-17] VITALS: BP 127/67; PULSE 90; RESP 18; TEMP 36.6; O2SAT 97
[2022-02-17 04:00] VITALS: BP 115/60; PULSE 88; RESP 15; TEMP 36.6; O2SAT 93
[2022-02-17] MEDS: OXYCODONE IR 5 MG TABLET PO (07:44)
[2022-02-17 08:00] VITALS: BP 105/60; PULSE 85; RESP 16; TEMP 36.8; O2SAT 97
[2022-02-17] MEDS: INSULIN LISPRO 100 UNIT/ML 3ML VIAL SUBCUT ×2 (08:13→11:53)
[2022-02-17] MEDS: FENOFIBRATE, MICRONIZED 67 MG CAPSULE 201 MG PO (08:14)
[2022-02-17] MEDS: INSULIN GLARGINE 100 UNIT/ML 3ML PEN 15 UNIT SUBCUT (08:15)
--- NOTE | 2022-02-17 08:20 | P.PN_ITS ---
Subjective Subjective Date Patient Seen: 02/17/22 Interval history: 26-year-old gentleman presently hospital day 4 admitted with hypertriglyceridemia induced acute pancreatitis as well as a new diagnosis of diabetes mellitus Patient reports he continues to have abdominal pain and nausea. He states he did eat half of a grilled cheese last evening. He reports his urine is still dark but perhaps slightly more yellow today. He complains of feeling abdominal fullness. Last bowel movement was March 15. Exam Vital Signs (past 8 hours): - 02/17/22 04:00 02/17/22 07:00 Temperature 97.8 F Pulse Rate 88 Respiratory Rate 15 Blood Pressure 115/60 Pulse Oximetry 93 Oxygen Delivery Method Room Air Oxygen Delivery Method Room Air Oxygen Flow Rate 0 Narrative Exam Narrative: GEN:? Uncomfortable appearing adult male holding emesis bag, Alert and oriented x 3 HEENT:NC, Face symmetric CHEST: Respiratory excursions symmetric, CTAB CV: RRR, no M/R/G ABD: Soft, mildly diffusely tender/ND, BT present in all 4 quadrants, body habitus limits exam EXTR: warm, well perfused, no C/C/E SKIN: warm and dry, no rash NEURO: Alert and oriented x 3, nonfocal Objective Labs Result Diagrams: 02/16/22 04:27 02/16/22 04:27 [facility] Medical History (Updated 02/13/22 @ 19:00 by Son Maynard DO) No pertinent past medical history Surgical History (Updated 02/13/22 @ 19:00 by Son Maynard DO) No pertinent past surgical history Family History (Updated 02/13/22 @ 19:00 by Son Maynard DO) Brother Diabetes mellitus Father Diabetes mellitus Social History household members: significant other Smoking Status: Never smoker alcohol intake: current Assessment & Plan Assessment & Plan narrative: 1. Acute pancreatitis, secondary to hypertriglyceridemia Patient is having ongoing pain secondary to his pancreatitis.? He is on a controlled carbohydrate diet.? Encouraged him to maintain his hydration and eat only if he is not having pain and nausea.? Continue oxycodone as needed.? Triglycerides are gradually improving.? Continues on fenofibrate and atorvastatin. Await this morning's labs. Will also check a CRP. Encouraged him to take a shower and began increasing mobility today. 2. Hypertriglyceridemia As noted, remains on atorvastatin and fenofibrate.? Triglycerides are improved from 3186 on admission to 763 yesterday. Await this morning's labs. 3. Diabetes mellitus Likely type 2 though hellen antibodies are still pending.? Will increase his Lantus to 15 units daily.? Blood sugars have ranged from 191-218 in the past 24 hours. 4. Mild DKA Resolved. 5. Probable non alcoholic steatohepatitis Abdominal MRI revealed no evidence of biliary ductal dilatation or cholel ithiasis.? Hepatic steatosis was noted. 6. Class 1 obesity BMI is 33.2.? Will benefit from weight reduction Code status Full Prophylaxis On Lovenox Disposition Recheck this afternoon to determine if he may be ready for discharge, but suspect discharge tomorrow. Time Spent With Patient Critical Care time: I spent a total of [] minutes of critical care time on this patient's care today; this time is exclusive of procedural time. Quality VTE Deep Vein Thrombosis/Pulmonary Embolism Present on Admission: No
[2022-02-17] MEDS: BISACODYL 10 MG SUPP PR (09:08)
[2022-02-17 09:43] LABS: BUN Creatinine Ratio 12.3 (6-22); Blood Urea Nitrogen 9 mg/dL (9-20); Carbon Dioxide 24 mmol/L (22-32); Chloride 96 mmol/L (98-107); Estimated Glomerular Filt Rate > 60 mL/min (>60); Glucose 205 mg/dL (70-100); HEMOLYSIS < 15 (0-50); Potassium 3.7 mmol/L (3.4-5.1); Sodium 133 mmol/L (137-145)
[2022-02-17 09:57] LABS: C-Reactive Protein Quant > 9.0 mg/dL (<1.0); Triglycerides 714 mg/dL (35-150)
[2022-02-17 12:00] VITALS: BP 120/77; PULSE 102; RESP 20; TEMP 36.8; O2SAT 96
--- NOTE | 2022-02-17 12:59 | CM.DPNOTE ---
DCP Note: Patient moving about in room, showered this morning. Spouse in room. Patient will most likely discharge today. Plan: Discharge home with spouse. Angle Roberts RN/DCP
--- NOTE | 2022-02-18 14:08 | P.DS_ITS ---
History of Present Illness History of Present Illness Chief complaint: Abd/Chest pain x 2 days- getting worse Narrative: per H&P: 26 year old male with no known PMH who presented to the emergency room with 2 days of worsening epigastric abdominal pain, nausea, and vomiting. Patient states he began developing epigastric / substernal pain which was sharp, not necessarily associate with food / meals 2 days ago that slowly worsened since then. He has no melena or hematochezia, but the first time he vomited he noticed a few specks of blood. No further blood has been noticed since then. He also says polyuria and polydipsia but no weight loss.? He denies any recent fevers, chills, chest pain, palpitations, lower extremity edema, or rash. In the emergency room, patient was mildly tachycardic but the remainder of his vital signs were unremarkable.? Laboratory evaluation revealed a mild leukocytosis with WBC 12.4, history is were notable for a glucose of 331, elevated bilirubin of 2.4, with mild transaminitis of AST of 85 and ALT of 133.? Triglycerides were 3186, lipase was 9839.? COVID-19 testing was negative.? Abdominal MRI showed evidence of pancreatitis but no biliary dilatation.? Patient was admitted to the ICU for further management of hypertriglyceridemia induced pancreatitis Discharge Providers Provider Date of admission: 02/13/22 18:09 Discharge Date: 02/17/22 Primary care physician: Doctor Annmarie MD Consults: 02/13/22 18:15 Consult to Tele-construction stonemason Routine Comment: Consulting Provider: [facility] [employer] Reason for consultation: Reimbursement Specialist services 02/15/22 11:33 Consult to Dietitian, Adult Routine Comment: Reason For Exam: new DM Discharge provider: Lima Solo MD Summary Hospital Course Discharge Diagnosis: 1. Acute pancreatitis, secondary to hypertriglyceridemia PPatient was admitted w/acute pancreatitis felt to be secondary to hypertriglyceridemia. His admission triglycerides were 3186. At the time of discharge, it was down to 716. He was placed on an insulin drip to help with decreasing the triglycerides, as well as initiated on fenofibrate and atorvastatin. He was able to gradually increase po intake. He had persistent abdominal discomfort on the date of discharge but was felt to be constipated. He was given a suppository which resulted in a BM, took a shower and increased his activity level around the unit. On the afternoon of 02/17, he requested discharge home. 2. Hypertriglyceridemia As noted, remains on atorvastatin and fenofibrate.? Triglycerides are improved from 3186 on admission to 716 at d/c.? 3. Diabetes mellitus Likely type 2 though hellen antibodies were still pending at the time of dc.? Blood sugars have ranged from 191-218 in 24 hours prior to d/c. He was placed on Lantus solostar pen and d/c'd at 15 units daily. 4. Mild DKA This resolved w/treatment in the ICU. 5. Probable non alcoholic steatohepatitis Abdominal MRI revealed no evidence of biliary ductal dilatation or cholelithiasis.? Hepatic steatosis was noted. 6. Class 1 obesity BMI is 33.2.? Will benefit from weight reduction Status at Discharge Cognitive/behavioral status at discharge: at baseline, oriented Functional status at discharge: independent ambulation Overall status at discharge: patient is progressing back to baseline Time Spent with Patient Time spent: Greater than 30 minutes (45 minutes spent in cooordinating care on date of dc) Exam Vital Signs (past 8 hours): Oxygen Delivery Method Room Air Oxygen Flow Rate 0 Objective Labs Result Diagrams: 02/16/22 04:27 02/17/22 09:10 [facility] Medical History (Updated 02/13/22 @ 19:00 by Son Maynard DO) No pertinent past medical history Surgical History (Updated 02/13/22 @ 19:00 by Son Maynard DO) No pertinent past surgical history Family History (Updated 02/13/22 @ 19:00 by Son Maynard DO) Brother Diabetes mellitus Father Diabetes mellitus Social History household members: significant other Smoking Status: Never smoker alcohol intake: current Discharge Plan Discharge Plan Patient Disposition: Home Provider Discharge Comment: Continue a controlled carb diet. Work on increasing your activity level, which will help w/glucose control. Continue checking your Blood sugar 4 times daily (fasting in am, before lunch, before dinner, and at bedtime) routinely and as needed if you feel lightheaded/sweaty/weak. Keep a log of your blood sugars. Eat a low-fat diet to help control symptoms of pancreatitis. If you have increased pain and/or nausea, decrease your intake back to clear liquids until your pain and/or nausea have improved. Schedule an appointment w/your PCP. If you don't have one, please obtain one LAINE. Return to the ED for blood sugars above 500, nausea or vomiting, or inability to keep food/fluids down. Discharge orders & Medications Prescriptions: New atorvastatin [Lipitor] 20 mg Tablet 80 mg PO BEDTIME Qty: 120 0RF fenofibrate micronized 67 mg Capsule 201 mg PO DAILY@0800 Qty: 90 0RF insulin glargine 100 unit/mL (3 mL) Insulin Pen 15 unit SUBCUT DAILY Qty: 5 0RF oxycodone 10 mg Tablet 10 mg PO Q3HR PRN (Reason: Pain, Severe (7-10)) Qty: 10 0RF (DME) lancets [Lancets,Thin] Misc See Rx Instructions .Route Qty: 100 0RF Rx Instructions: As directed (DME) pen needle, diabetic 29 gauge needle See Rx Instructions .Route Qty: 100 0RF Rx Instructions: As directed (DME) blood-glucose meter [Accu-Chek [place] Plus Meter] Misc See Rx Instructions .Route Qty: 1 0RF Rx Instructions: As directed (DME) Accu-Chek [place] Plus test strp Strip See Rx Instructions .Route Qty: 100 0RF Rx Instructions: As directed Medication counseling provided by Pharmacist: Yes Follow up/Referrals: Doctor Anguiano MD [Primary Care Provider] - Diet/Activity/Treatments Diet: Carb-consistent/Diabetic Activity: As tolerated Oxygen: N/A Visit Report/Discharge Packet Instructions: Insulin, How to Check Your Blood Glucose, DI for Diabetes Type 1 -- Adult, How to Use an Insulin Pen Stand Alone Forms: Work/Release Restrictions Discharge Data Primary Care Provider: Doctor Annmarie Quality VTE Deep Vein Thrombosis/Pulmonary Embolism Present on Admission: No
[2022-02-20 15:17] LABS: GAD-65 Antibody 30.4 U/mL (0.0-5.0)
== END 2022-02-17 13:05 | disposition home or self-care (01) | DRG 438 ==
LOC: ED 17:20 → ICU 02-14 10:24
PROVIDERS: Emergency Medicine; Family Medicine; Admitting Provider Internal Medicine; Emergency Provider Nurse Practitioner Critical Care Medicine; Referring Provider Nurse Practitioner Critical Care Medicine; Visit Provider Internal Medicine
DX: K85.90 Acute pancreatitis without necrosis or infection, unspecified (principal); E11.10 Type 2 diabetes mellitus with ketoacidosis without coma; K75.81 Nonalcoholic steatohepatitis (NASH); E78.1 Pure hyperglyceridemia; E66.9 Obesity, unspecified; Z20.822 Contact with and (suspected) exposure to COVID-19; Z68.32 Body mass index [BMI] 32.0-32.9, adult
CPT/HCPCS: 36415; 74183; 80048; 80053; 80061; 82550; 82553; 82962; 83036; 83605; 83690; 83735; 84145; 84478; 84484; 85025; 86140; 86341; 87040; 87635; 87797; 93005; 96374; 96375; 96376; 99284; C9803; C9113; J1170; J1650; J1815; J1885; J2405; J2543; J2765; J3475

== ENCOUNTER → 2022-03-23 12:20 | Outpatient (CLI) | payer OTHER, SELFPAY ==
[2022-02-13 18:15] VITALS: BMI 33.2
[2022-03-23 13:08] LABS: Add Manual Diff / Slide Review NO; Basophils Absolute Auto 100 /uL (0-100); Basophils Percent Auto 0.9 % (0-2); Eosinophils Absolute Auto 100 /uL (0-450); Eosinophils Percent Auto 1.8 % (2-4); Hematocrit 43.2 % (41-53); Hemoglobin 14.8 g/dL (13.5-17.5); Lymphocytes Absolute Auto 2900 /uL (1100-4500); Mean Corpuscular HGB Conc 34.3 % (30-36); Mean Corpuscular Volume 81.5 fL (80-100); Monocytes Absolute Auto 300 /uL (0-900); Monocytes Percent Auto 5.1 % (3-14); Neutrophils Absolute Auto 3300 /uL (1500-7000); Neutrophils Percent Auto 49.2 % (50-75); Platelet Count 268 X10^3/uL (150-400); Red Cell Distribution Width 13.9 % (11.6-14.8); White Blood Cell Count 6.7 X10^3/uL (4.5-11.0)
[2022-03-23 13:40] LABS: Hemoglobin A1C% w Est Avg Glu 9.6 % (4.0-6.0)
[2022-03-23 14:50] LABS: Alanine Aminotransferase 67 IU/L (<50); Albumin 4.6 g/dL (3.5-5.0); Albumin Globulin Ratio 1.7 (1.0-2.8); Alkaline Phosphatase 67 U/L (38-126); Aspartate Aminotransferase 34 IU/L (17-59); BUN Creatinine Ratio 16.3 (6-22); Bilirubin Total 0.8 mg/dL (0.2-1.3); Blood Urea Nitrogen 14 mg/dL (9-20); Calcium 9.8 mg/dL (8.4-10.2); Carbon Dioxide 27 mmol/L (22-32); Chloride 103 mmol/L (98-107); Cholesterol 130 mg/dL (140-199); Estimated Glomerular Filt Rate > 60 mL/min (>60); Globulin 2.7 g/dL (1.7-4.1); Glucose 174 mg/dL (70-100); HDL Cholesterol 24 mg/dL (40-60); HEMOLYSIS < 15 (0-50); LDL Cholesterol Calculated 67 mg/dL (<100); Lipase 201 U/L (23-300); Microalbumin Urine Random 2.2 mg/dL (0-1.6); Potassium 4.5 mmol/L (3.4-5.1); Sodium 140 mmol/L (137-145); Total Protein 7.3 g/dL (6.3-8.2); Triglycerides 194 mg/dL (35-150)
[2022-03-23 14:52] LABS: Creatinine Urine Random 181.6 mg/dL; Microalbumi Creatinin Ratio Ur 12.1 ug/mg CR (<30)
== END ==
PROVIDERS: PCP Family Medicine; Referring Provider Family Medicine; Visit Provider Family Medicine
DX: E13.65 Other specified diabetes mellitus with hyperglycemia (principal); Z79.4 Long term (current) use of insulin; E78.1 Pure hyperglyceridemia; K85.80 Other acute pancreatitis without necrosis or infection
CPT/HCPCS: 36415; 80053; 80061; 82043; 82570; 83036; 83690; 85025